=== PATIENT | male | born 1975 | race Caucasian/White ===

== ENCOUNTER 2016-10-12 10:11 | Inpatient (IN) | payer OTHER ==
[~2016-10-12] VITALS: Ht 182.9 cm; Wt 101.3 kg
[2016-10-12] MEDS ORDERED: LEVOTAB10 PO (10:22)
[2016-10-12] MEDS ORDERED: EFFE75CA75 PO (10:22)
[2016-10-12 11:48] LABS: MEAN CORPUSCULAR HEMOGLOBIN 31.6 pg (27.0-33.0); MEAN CORPUSCULAR VOLUME 87.7 fl (80.0-96.0); RED CELL DISTRIBUTION WIDTH 12.4 % (11.5-14.5); WHITE BLOOD COUNT 8.2 K/mm3 (4.0-10.0)
[2016-10-12 12:10] LABS: ALBUMIN 3.8 GM/DL (3.2-5.2); ALBUMIN/GLOBULIN RATIO 1.15 (1.00-1.93); ALKALINE PHOSPHATASE 72 U/L (45-117); ALT/SGPT 51 U/L (12-78); ANION GAP 5 MEQ/L (8-16); AST/SGOT 18 U/L (15-37); BILIRUBIN,DIRECT < 0.1 MG/DL (0.0-0.2); BILIRUBIN,TOTAL 0.5 MG/DL (0.2-1.0); BLOOD UREA NITROGEN 9 MG/DL (7-18); CALCIUM LEVEL 8.7 MG/DL (8.5-10.1); CARBON DIOXIDE LEVEL 31 MEQ/L (21-32); CHLORIDE LEVEL 104 MEQ/L (98-107); GLOMERULAR FILTRATION RATE > 60.0 (>60); GLUCOSE, FASTING 94 MG/DL (70-105); POTASSIUM SERUM 4.2 MEQ/L (3.5-5.1); SODIUM LEVEL 140 MEQ/L (136-145); TOTAL PROTEIN 7.1 GM/DL (6.4-8.2)
--- NOTE | 2016-10-12 12:22 | ECGEPIP ---
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 RBBB NSTTW ABNORMALITY NO PRIORS Electronically Signed On 10-12-2016 12:21:51 EDT by Torsten Steiner
[2016-10-12 13:22] LABS: METHADONE URINE NEGATIVE (NEGATIVE)
[2016-10-12] MEDS ORDERED: FEXO180T58 PO (14:10)
[2016-10-12] MEDS ORDERED: GUAI60TA PO (14:10)
[2016-10-12 17:17] VITALS: BP 147/80
[2016-10-12 18:00] VITALS: BP 129/78
[2016-10-12] MEDS ORDERED: MOM 30ML SUSPENSION UDC PO PRN (18:15)
[2016-10-12] MEDS ORDERED: traZODone 50 MG TAB PO PRN (18:15)
[2016-10-12] MEDS ORDERED: MAALOX 30 ML SUSP *UDC PO PRN (18:15)
[2016-10-12] MEDS ORDERED: ACETAMINOPHEN TAB 650MG DOSE (2X325MG) PO PRN (18:15)
[2016-10-12] MEDS ORDERED: VENLAFAXINE **XR** 75MG CAPSULE PO SCH (21:00)
[2016-10-12 21:40] VITALS: BP 129/78
[2016-10-13 06:00] VITALS: BP 121/83
[2016-10-13 18:00] VITALS: BP 126/86
[2016-10-13] MEDS: SERTRALINE HCL 50 MG TAB PO SCH (19:47)
--- NOTE | 2016-10-14 03:32 | MHHPEPDOC ---
[facility] History & Physical History and Physical DATE OF ADMISSION: Oct 12, 2016 at 13:59 LEGAL STATUS AT ADMISSION: Voluntary CHIEF COMPLAINT: Patient reports having thoughts of and passive suicidal ideation HISTORY OF THE PRESENT ILLNESS: Patient is a 41-year-old male, who reports feeling overwhelmed with his job, financial strains and depression. Reports a longstanding history of depression and has taken psychiatric medications such as venlafaxine 300 mgs. po daily but this medication was discontinued over a two weeks period and the discontinuation period created a lot of discomfort. Then he was given Remeron and it has made him very sleepy. Some years ago he was placed on Wellbutrin and this medication made him anxious. He would like to find a medication that helps him overcome depression. PSYCHIATRIC REVIEW OF SYSTEMS: Affective: Sad, helpless, hopeless, guilt, social isolation, low energy levels Anxiety: High anxiety levels Trauma: Denies, except that he had a legal problem years ago, for which he still feels embarrassed and blames himself for it . Psychosis: Denies auditory or visual hallucinations. Personally: Needs further assessment. PAST PSYCHIATRIC HISTORY: Prior Psychiatric Disorder: He reports a longstanding history of depression. Has been treated with Venlafaxine, Wellbutrin and Remeron without success.. Outpatient Treatment: Goes for outpatient treatment but his appointment was early next week and he will [facility]. Suicidal/Self injurious: Has had suicidal ideation, passive. Psychotropic Medication History: He was on Venlafaxine and was weaned from it in a 2 week period, then he wa started on Wellbutrin and he didin't tolerate it because it made him very anxious. After Wellbutrin he was started on Remeron but it makes him too sleepy.. ALLERGIES: Please see below. FAMILY PSYCHIATRIC HISTORY: he denies. SOCIAL HISTORY: Early Relations/development: He says he was a rebellious adolescent and had lots of anger. Had problems chanelling it the proper way.. Sibling order: He's the oldest one. 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 Legal: A previous legal problem at a young age. He didn't elaborate. Martial: . doesn't understand mental illness. Economic: Financial pressure and strains at the present moment.. Supports: and family. Abuse/trauma: Denies. SUBSTANCE ABUSE HISTORY: Denies. PAST MEDICAL/SURGICAL HISTORY: 1. Irrelevant. VITAL SIGNS: See below. MENTAL STATUS EXAMINATION: General appearance: Patient is a 41-year old male, who is alert, pleasant, cooperative, with good eye contact, . Speech: fluid, articulate. Thought processes: Intact. Thought content: Coherent. Abstract reasoning and computation: Intact. Description of associations: Not loosening of associations. Description of abnormal or psychotic thoughts: Denies active suicidal BUT endorses passive, fleeting suicidal thoughts. Denies homicidal ideation, denies auditory and visual hallucinations, denies thought delusions. Judgment: Fair Insight: Limited Orientation: Oriented x 3. Recent and remote memory: Intact. Attention span and concentration: Fair. Fund of knowledge: Adequate. Mood: "Depressed." Affect: Sad, depressed DIAGNOSES: 1. Major Depressive Disorder, recurrent, severe. 2. Generalized Anxiety Disorder. ASSESSMENT: Pt. is cooperative and insightful into his treatment process. He needs supportive psychotherapy and the proper medication combination to overcome his problem. PROBLEM LIST: 1. Depression. 2. Anxiety. 3. Risk for suicide/self harm. INITIAL TREATMENT PLAN: 1. Patient was admitted on a . 2. Complete history was obtained. 3. With patients permission, family will be contacted and database will be expanded. 4. Patients medication regimen will be reviewed and changed accordingly. 5. Patient will be provided with protected environment. 6. Patient will be treated with individual, group, and milieu therapies. 7. Patient will receive supportive psych-education. 8. Discharge planning will commence immediately. 9. Outpatient follow-up treatment will be strongly recommended. 10. The initial treatment plan will focus initially on: * Depression. * Risk for suicide. * Substance abuse. ESTIMATED LENGTH OF STAY: 7-10 DAYS. TIME SPENT COUNSELING AND COORDINATING INITIAL CARE: 50 minutes. Medications Scheduled Levocetirizine Hydrochloride (Levocetirizine Dihydrochl) 5 Mg Tab, 5 MG PO QPM, (Reported) Venlafaxine Hydrochloride (Effexor Xr) 75 Mg Cap, 75 MG PO QPM, (Reported) Scheduled PRN Fexofenadine Hydrochloride (Fexofenadine HCl) 180 Mg Tab, 180 MG PO DAILY PRN for allergies, (Reported) Guaifenesin (Mucinex) 600 Mg Tab, 600 MG PO QPM PRN for CONGESTION, (Reported) Allergies Coded Allergies: No Known Allergies (Unverified , 10/12/16) DAQUAN GORDILLO MD Oct 14, 2016 03:32
[2016-10-14 06:00] VITALS: BP 129/88
[2016-10-14] MEDS: SERTRALINE HCL 50 MG TAB PO SCH (09:18)
[2016-10-14 18:00] VITALS: BP 146/85
--- NOTE | 2016-10-14 18:41 | MHIPNPDOC ---
[facility] Progress Note Progress Note DATE OF SERVICE: 10/14/16 INTERVAL HISTORY: Medication Side effects: reports no side effects from the sertraline including G.I. side effects Behavior/events: has been sleeping a lot this morning Group Attendance: has attempted to go to groups Psychiatric Symptoms: reports his depression and anxiety have yet to change, described having difficulties with student loans, balancing financial and family concerns as well as not being in therapy the last several months. Describes the due to his position is unable to easily get psychological healthcare. He describes the past is tried bupropion, but is only made the symptoms worse VITAL SIGNS: See below. NEW TEST RESULTS: See below CURRENT MEDICATIONS: See below. MENTAL STATUS EXAMINATION: General: Well dressed with good hygiene Speech: Spontaneous and fluid Thought processes: Linear and logical Thought content: rife with stressful thoughts Abstract reasoning, and computation: Intact Description of associations: Intact Description of abnormal or psychotic thoughts:Denies any suicidal or homicidal ideation. Denies any auditory or visual hallucinations. Does not appear to be responding to internal stimuli. Does not appear to be endorsing any bizarre or paranoid ideation. Judgment: fair Insight: fair Orientation: Alert and orientated 3 Recent and remote memory: Intact Attention span and concentration: Intact Fund of knowledge: Adequate Mood: "okay" Affect: dysthymic with constricted range DIAGNOSES: 1. Unspecified depressive disorder. 2. Unspecified anxiety disorder. 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 side effects. Psychotherapy: encourage group therapy Social: no plan discharge at this time Misc: patient might be a candidate for Tele psych due to position Disposition: The patient will need of further inpatient stay to address severe depression and anxiety. TIME SPENT: 15 minutes. Vital Signs Vital Signs Date Time Temp Pulse Resp B/P (MAP) Pulse Ox O2 Delivery O2 Flow Rate FiO2 10/14/16 18:00 97.8 75 16 146/85 (105) 10/12/16 15:58 99 10/12/16 10:23 Room Air Current Medications Current Medications Acetaminophen (Tylenol Tab) 650 mg Q6HP PRN PO HEADACHE or DISCOMFORT; Start at 18:15; Stop 11/11/16 at 18:14 Al Hydrox/Mg Hydrox/Simethicone (Mylanta) 30 ml Q4HP PRN PO HEARTBURN/ INDIGESTION; Start 10/12/16 at 18:15; Stop 11/11/16 at 18:14 Home Med (Med Rec Complete!) ASDIRECTED XX ; Start 10/12/16 at 14:15; Stop at 14:15; Status DC Magnesium Hydroxide (Milk Of Magnesia) 30 ml DAILYPRN PRN PO CONSTIPATION; Start 10/12/16 at 18:15; Stop 11/11/16 at 18:14 Sertraline HCl (Zoloft) 50 mg DAILY PO Last administered on 10/14/16 09:18; Start 10/13/16 at 09:00; Stop 11/12/16 at 08:59 Trazodone HCl (Desyrel) 50 mg QHSP PRN PO INSOMNIA; Start 10/12/16 at 18:15; Stop 11/11/16 at 18:14 Venlafaxine HCl (Effexor Xr) 75 mg QPM PO Last administered on 10/12/16 20 :43; Start 10/12/16 at 21:00; Stop 10/13/16 at 19:03; Status DC Allergies Coded Allergies: No Known Allergies (Unverified , 10/12/16) GME ATTESTATION My preceptor for this patient encounter was physically present in the building during the encounter and was fully available. As needed, all aspects of the patient interview, examination, medical decision making process, and medical care plan development were reviewed and approved by the preceptor. Preceptor is aware and concurs with the plan as stated in the body of this note and will attest to such by his/her cosignature. SUZIE HOLT DO Oct 14, 2016 18:41
[2016-10-14] MEDS: CETIRIZINE (ZyrTEC) 10 MG TAB PO SCH (21:00)
[2016-10-15 06:22] VITALS: BP 144/96
[2016-10-15] MEDS: SERTRALINE HCL 50 MG TAB PO SCH (09:24)
--- NOTE | 2016-10-15 13:01 | HPE ---
DATE OF ADMISSION: 10/12/2016 HISTORY OF THE PRESENT ILLNESS: Please refer to psychiatric history and evaluation for further details on this admission. This examination and history performed is intended for medical issues history, which may need treatment, follow-up or consult on this 41-year-old male. PRIMARY CARE PROVIDER: He had made an appointment with [facility]. It is an upcoming appointment. He has not been there yet to establish. ALLERGIES: No known drug allergies. SOCIAL HISTORY: He is . EtOH three times a month. Smokes none. Recreational drug use none. PAST MEDICAL HISTORY: Environmental allergies. PAST SURGICAL HISTORY: Repair of deviated septum. HOME MEDICATIONS: - Effexor XR 75 mg by mouth every evening - Xyzal 5 mg by mouth every evening FAMILY HISTORY: Noncontributory. LABORATORIES: WBC 8.2, hemoglobin 14, hematocrit 39.0, platelets 229, electrolytes are normal, BUN 9, creatinine 0.90. Toxicology screen is negative. EKG showed sinus rhythm. REVIEW OF SYSTEMS: 10 systems review was done. Other than some stuffiness, he had no complaints. PHYSICAL EXAMINATION: 31-year-old cooperative male in no acute distress. Height 72 inches, weight 100.3 kg, BMI 30.0, blood pressure 124/86, pulse 76, respirations 16, temperature 98.6. Patient is alert and oriented times three. Pupils equal and react to light. Extraocular muscles intact. Cornea and sclerae are clear. Conjunctivae are normal. No facial asymmetry. Pharynx, tongue and gums are pink and moist. Tongue is midline. Neck is supple without lymphadenopathy. No thyromegaly. No goiter. Carotids are 2+ without bruit. Chest clear to auscultation without wheeze or retraction. Heart is regular. Abdomen is benign. Bowel sounds are positive. /rectal not done. Extremities show equal strength. Full range of motion. No cyanosis, clubbing or edema. Peripheral pulses are equal and palpable bilaterally. Skin is warm and dry. IMPRESSION/PLAN: 1. Psychiatric plan per psychiatry. 2. Environmental allergies, takes Xyzal at home, not on formulary will do Zyrtec 10 mg by mouth every evening. 3. No other acute medical issues. Edited 10/15/2016 JESSICAD
--- NOTE | 2016-10-15 13:04 | MHIPNPDOC ---
[facility] Progress Note Progress Note DATE OF SERVICE: 10/15/16 HISTORY: day 4, pt admitted for exacerbation of depression during medication change. VITAL SIGNS: See below. NEW TEST RESULTS: na CURRENT MEDICATIONS: See below. MENTAL STATUS EXAMINATION: Patient is a 41-year old male, who is well groomed, makes good eye contact, easily engaged. Speech: Is clear and spontaneous. Language skills are intact Thought processes including:coherent, linear, nothing out of the ordinary. Thought content: appropriate: medication, discharge, stressors. Abstract reasoning, and computation: good. Description of associations: good. Description of abnormal or psychotic thoughts: no psychotic symptoms. no thoughts of suicide. Judgment: good Insight: good. Orientation:well oriented in all spheres. Recent and remote memory: grossly intact Attention span and concentration: varies Fund of knowledge: full Mood:depressed. Affect: anxious. DIAGNOSES: 1. MDD, severe, recurrent without psychotic features. 2. JOY ASSESSMENT:met with pt for 1:1 discussion about reason for discharge and medication changes. 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 His is not versed in the impact of mental health and when we discussed a family meeting he thought this was a good idea. Pt is tolerating the change from Effexor 75 mg to Sertraline 50 mg. He reports adequate sleep. Appetite is intact. 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 He is hoping for discharge as soon as possible. Pt is encouraged to attend at least 1 group a day to help with coping and skill building and he agrees to do that. He also agrees to report any worsening depression or thoughts of suicide to staff. It was explained to pt that these medications need up to 4 weeks or longer to work so immediate results are not possible. He may be discharge before the full effect of the sertraline is known. Discussed side effects that can be intermittent and the fact that sertraline should not be stopped abruptly. It requires tapering much like Effexor. Pt has a great deal of anxiety and counseling is suggested as part of the discharge plan to help him sort out the stressors of his employment and problem solve difficult areas. He has expressed interest in attending counseling at [facility]. MANAGEMENT PLAN: continue medication and monitor side effects and efficacy. monitory sleep. maintain close observation, encourage participation in therapeutic milieu. Arrange family meeting prior to discharge. TIME SPENT: minutes. Vital Signs Vital Signs Date Time Temp Pulse Resp B/P (MAP) Pulse Ox O2 Delivery O2 Flow Rate FiO2 10/15/16 06:22 98.2 65 18 144/96 (112) Room Air 10/12/16 15:58 99 Current Medications Current Medications Acetaminophen (Tylenol Tab) 650 mg Q6HP PRN PO HEADACHE or DISCOMFORT; Start at 18:15; Stop 11/11/16 at 18:14 Al Hydrox/Mg Hydrox/Simethicone (Mylanta) 30 ml Q4HP PRN PO HEARTBURN/ INDIGESTION; Start 10/12/16 at 18:15; Stop 11/11/16 at 18:14 Cetirizine HCl (ZyrTEC) 10 mg QHS PO ; Start 10/14/16 at 21:00; Stop 11/13/16 at 20:59 Home Med (Med Rec Complete!) ASDIRECTED XX ; Start 10/12/16 at 14:15; Stop at 14:15; Status DC Magnesium Hydroxide (Milk Of Magnesia) 30 ml DAILYPRN PRN PO CONSTIPATION; Start 10/12/16 at 18:15; Stop 11/11/16 at 18:14 Sertraline HCl (Zoloft) 50 mg DAILY PO Last administered on 10/15/16 09:24; Start 10/13/16 at 09:00; Stop 11/12/16 at 08:59 Trazodone HCl (Desyrel) 50 mg QHSP PRN PO INSOMNIA; Start 10/12/16 at 18:15; Stop 11/11/16 at 18:14 Venlafaxine HCl (Effexor Xr) 75 mg QPM PO Last administered on 10/12/16 20 :43; Start 10/12/16 at 21:00; Stop 10/13/16 at 19:03; Status DC Allergies Coded Allergies: No Known Allergies (Unverified , 10/12/16) Ruth Rios Oct 15, 2016 13:03
[2016-10-15 18:29] VITALS: BP 127/63
[2016-10-15] MEDS: CETIRIZINE (ZyrTEC) 10 MG TAB PO SCH (21:30)
[2016-10-16 06:34] VITALS: BP 137/89
[2016-10-16] MEDS: SERTRALINE HCL 50 MG TAB PO SCH (08:28)
--- NOTE | 2016-10-16 13:20 | MHIPNPDOC ---
[facility] Progress Note Progress Note DATE OF SERVICE: 10/16/16 HISTORY: day 5, pt admitted with increasing depression and anxiety VITAL SIGNS: See below. NEW TEST RESULTS: na CURRENT MEDICATIONS: See below. MENTAL STATUS EXAMINATION: Patient is a 41-year old male, who is clean shaven, dressed in hospital attire, makes good eye contact, appears younger than his age, pleasant. Speech: Is coherent and spontaneous. Language skills are good. Thought processes including: goal directed Thought content: appropriate. Abstract reasoning, and computation: good. Description of associations: good. Description of abnormal or psychotic thoughts: no psychotic symptoms noted, pt reports that he is not having suicidal ideation. Judgment: good Insight: good, Orientation: well oriented in all spheres. Recent and remote memory: intact. Attention span and concentration: good. Fund of knowledge: full. Mood: anxious. Affect: congruent DIAGNOSES: MDD, severe without psychotic features. Generalized Anxiety Disorder ASSESSMENT:met with pt for 1:1 today. He reports waking right after an episode of REM sleep (he was dreaming) and feeling a little off because of that. He is a bit tired today and is contemplating a nap but does not want napping to become a habit for him. He spoke about what he considers his reliance on caffeine on a daily basis. We discussed the effect of caffeine on anxiety. He will often drink coffee and not eat and we discussed having protein in the morning and cutting out caffeine by 10 a.m. Caffeine use throughout the afternoon may also inhibit sleep and that becomes an additional problem. He verbalized understanding of information discussed. Pt continues to look forward to discharge. He is attending programing and mentioned he enjoyed Yoga yesterday. He stated he slept heavily last night, not affected by the code that was called on the floor. Pt states that suicidal ideation was not a main contributor to this admission. He reported having SI in college for the first time but he never acted on the thought. He denies having a plan now for suicide and feels it is really not an option for him. MANAGEMENT PLAN: pt is tolerating sertraline 50 mg without any GI problems or complaints. No skin rash or SOB. pt is not requiring a sleep aid at night. Pt is hoping his will agree to come in tomorrow and perhaps he could be discharged then. 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 TIME SPENT: 25 minutes. Vital Signs Vital Signs Date Time Temp Pulse Resp B/P (MAP) Pulse Ox O2 Delivery O2 Flow Rate FiO2 10/16/16 06:34 97.8 107 18 137/89 (105) 10/15/16 06:22 Room Air 10/12/16 15:58 99 Current Medications Current Medications Acetaminophen (Tylenol Tab) 650 mg Q6HP PRN PO HEADACHE or DISCOMFORT; Start at 18:15; Stop 11/11/16 at 18:14 Al Hydrox/Mg Hydrox/Simethicone (Mylanta) 30 ml Q4HP PRN PO HEARTBURN/ INDIGESTION; Start 10/12/16 at 18:15; Stop 11/11/16 at 18:14 Cetirizine HCl (ZyrTEC) 10 mg QHS PO Last administered on 10/15/16 21:30; Start 10/14/16 at 21:00; Stop 11/13/16 at 20:59 Home Med (Med Rec Complete!) ASDIRECTED XX ; Start 10/12/16 at 14:15; Stop at 14:15; Status DC Magnesium Hydroxide (Milk Of Magnesia) 30 ml DAILYPRN PRN PO CONSTIPATION; Start 10/12/16 at 18:15; Stop 11/11/16 at 18:14 Sertraline HCl (Zoloft) 50 mg DAILY PO Last administered on 10/16/16 08:28; Start 10/13/16 at 09:00; Stop 11/12/16 at 08:59 Trazodone HCl (Desyrel) 50 mg QHSP PRN PO INSOMNIA; Start 10/12/16 at 18:15; Stop 11/11/16 at 18:14 Venlafaxine HCl (Effexor Xr) 75 mg QPM PO Last administered on 10/12/16 20 :43; Start 10/12/16 at 21:00; Stop 10/13/16 at 19:03; Status DC Allergies Coded Allergies: No Known Allergies (Unverified , 10/12/16) Ruth Rios Oct 16, 2016 13:20
[2016-10-16 18:18] VITALS: BP 123/72
[2016-10-16] MEDS: CETIRIZINE (ZyrTEC) 10 MG TAB PO SCH (20:52)
[2016-10-17 06:35] VITALS: BP 152/78
[2016-10-17] MEDS: SERTRALINE HCL 50 MG TAB PO SCH (08:41)
[2016-10-17] MEDS ORDERED: SERT50TA PO (11:18)
--- NOTE | 2016-10-17 11:20 | MHDSPDOC ---
[facility] Discharge Summary Discharge Summary DATE OF ADMISSION: Oct 12, 2016 at 13:59 DATE OF DISCHARGE: Oct 17, 2016 DISCHARGE DIAGNOSES: MDD, severe, recurrent, without psychotic features Generalized Anxiety disorder REASON FOR ADMISSION: syncope related to medication change and anxiety. 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 He attend groups about once a day. He was visited routinely by his . He was taken off the Effexor and started on sertraline shortly after admission. He tolerated the change well with no reported side effects or GI effects one taking sertraline. Pt had mostly good sleep on the unit. He spends a great deal of time analyzing things but showed insight and good judgement. HOSPITAL COURSE:pt tolerated medication adjustment. He received information about medications to help with anxiety such as buspar and hydroxyzine. BENZO's were discussed but discouraged except for emergency situations. pt got along well with peers and staff. No behavior challenges. DISCHARGE ASSESSMENT: It was challenging to find a private practice who would take his insurance in order to arrange follow up for med mgt and psychotherapy. he did agree to attend [facility] for meds and therapy. Appts were made for him there as well as for PCP services at [facility]. The team met with pts to discuss origins of depression, best practices and treatment recommendations. Discussed role of medication along with the importance of staying busy. MENTAL STATUS EXAMINATION ON DISCHARGE: Patient is a 41-year old male, who is blonde, clean shaven, wearing street clothes, smiling and pleasant. Speech is clear, coherent Language skills are intact. Thought processes including: goal directed. Thought content: appropriate Abstract reasoning, and computation: good. Description of associations: good. Description of abnormal or psychotic thoughts: none, no SI or HI, no psychosis. Judgment: good Insight: good. Orientation to all spheres. Recent and remote memory: intact. Attention span and concentration: good. Fund of knowledge: full Mood: euthymic. Affect: congruent. MEDICATIONS ON DISCHARGE: - sertraline 50 mg daily for depression/anxiety - do not stop medication abruptly PLAN/FOLLOWUP ARRANGEMENTS:[facility]. The amount of time spent in the coordination of care for this patient was approximately 35 minutes. Vital Signs/I&Os Vital Signs Date Time Temp Pulse Resp B/P (MAP) Pulse Ox O2 Delivery O2 Flow Rate FiO2 10/17/16 06:35 97.6 87 20 152/78 (102) 10/15/16 06:22 Room Air 10/12/16 15:58 99 Medications Scheduled Levocetirizine Hydrochloride (Levocetirizine Dihydrochl) 5 Mg Tab, 5 MG PO QPM, (Reported) Sertraline Hcl (Sertraline HCl) 50 Mg Tab, 50 MG PO DAILY for MOOD for 7 Days, # 7 Scheduled PRN Fexofenadine Hydrochloride (Fexofenadine HCl) 180 Mg Tab, 180 MG PO DAILY PRN for allergies, (Reported) Guaifenesin (Mucinex) 600 Mg Tab, 600 MG PO QPM PRN for CONGESTION, (Reported) Allergies Coded Allergies: No Known Allergies (Unverified , 10/12/16) Ruth Rios Oct 17, 2016 11:19
== END 2016-10-17 12:35 | disposition home or self-care (01) | DRG 751 ==
LOC: EDBD 10:11 → M ED 13:05 → M ED INP 13:59 → M PSY 16:50
PROVIDERS: ADMIT Psychiatry & Neurology Psychiatry; ATTEND Psychiatry & Neurology Psychiatry
DX: F33.2 Major depressive disorder, recurrent severe without psychotic features (principal); F41.1 Generalized anxiety disorder; Z79.899 Other long term (current) drug therapy; J30.9 Allergic rhinitis, unspecified

== ENCOUNTER → 2016-10-26 | Outpatient (REF) | payer OTHER ==
[~2016-10-26] MED LIST: EFFE75CA75 PO; FEXO180T58 PO; LEVOTAB10 PO; MUCI600T31 PO; SERT50TA PO
== END ==
LOC: M SFHCPLAZ 16:14
PROVIDERS: ATTEND Nurse Practitioner Family
DX: F41.9 Anxiety disorder, unspecified (principal); G47.00 Insomnia, unspecified; Z13.220 Encounter for screening for lipoid disorders

== ENCOUNTER → 2016-11-20 | Outpatient (CLI) | payer OTHER ==
[2016-11-20 08:31] LABS: BASO % 0.5 % (0.0-1.0); EOS # 0.1 K/mm3 (0.0-0.50); EOS % 1.4 % (0.0-3.0); LARGE UNSTAINED CELL # 0.1 K/mm3 (0.0-0.4); LARGE UNSTAINED CELL % 1.6 % (0.0-4.0); LYMPH # 1.4 K/mm3 (1.5-4.5); LYMPH % 26.6 % (24.0-44.0); MEAN CORPUSCULAR HEMOGLOBIN 31.9 pg (27.0-33.0); MEAN CORPUSCULAR HGB CONC 36.1 g/dl (32.0-36.5); MEAN CORPUSCULAR VOLUME 88.2 fl (80.0-96.0); MONO # 0.3 K/mm3 (0.0-0.8); NEUTROPHILS # 3.1 K/mm3 (1.8-7.7); NEUTROPHILS % 63.9 % (36.0-66.0); PLATELET COUNT, AUTOMATED 242 k/mm3 (150-450); RED CELL DISTRIBUTION WIDTH 12.4 % (11.5-14.5); WHITE BLOOD COUNT 4.9 K/mm3 (4.0-10.0)
[2016-11-20 08:58] LABS: ALBUMIN 4.1 GM/DL (3.2-5.2); ALBUMIN/GLOBULIN RATIO 1.32 (1.00-1.93); ALKALINE PHOSPHATASE 65 U/L (45-117); ALT/SGPT 48 U/L (12-78); ANION GAP 8 MEQ/L (8-16); AST/SGOT 13 U/L (15-37); BILIRUBIN,TOTAL 0.6 MG/DL (0.2-1.0); BLOOD UREA NITROGEN 10 MG/DL (7-18); CALCIUM LEVEL 9.2 MG/DL (8.5-10.1); CARBON DIOXIDE LEVEL 29 MEQ/L (21-32); CHLORIDE LEVEL 104 MEQ/L (98-107); CHOLESTEROL LEVEL 197 MG/DL (<200); CREATININE FOR GFR 0.84 MG/DL (0.70-1.30); FREE T4 0.87 NG/DL (0.76-1.46); GLOMERULAR FILTRATION RATE > 60.0 (>60); GLUCOSE, FASTING 99 MG/DL (70-105); POTASSIUM SERUM 4.1 MEQ/L (3.5-5.1); SODIUM LEVEL 141 MEQ/L (136-145); TOTAL PROTEIN 7.2 GM/DL (6.4-8.2); TRIGLYCERIDES LEVEL 289 MG/DL (<150)
== END ==
LOC: M LAB 07:01
PROVIDERS: ATTEND Nurse Practitioner Family
DX: Z00.00 Encounter for general adult medical examination without abnormal findings (principal); F41.9 Anxiety disorder, unspecified; G47.00 Insomnia, unspecified; Z13.220 Encounter for screening for lipoid disorders

== ENCOUNTER → 2016-11-20 | Outpatient (CLI) | payer OTHER | LOC: M LAB 07:04 | PROVIDERS: ATTEND Nurse Practitioner Psychiatric/Mental Health | DX: F33.0 Major depressive disorder, recurrent, mild (principal) ==

== ENCOUNTER 2017-10-09 12:30 | Inpatient (IN) | payer OTHER ==
[2017-10-09 13:32] LABS: HEMATOCRIT 40.7 % (42.0-52.0); HEMOGLOBIN 14.9 g/dl (13.5-17.5); MEAN CORPUSCULAR HEMOGLOBIN 31.3 pg (27.0-33.0); MEAN CORPUSCULAR VOLUME 85.5 fl (80.0-96.0); PLATELET COUNT, AUTOMATED 250 10^3/uL (150-450); RED BLOOD COUNT 4.76 10^6/uL (4.30-6.10); RED CELL DISTRIBUTION WIDTH 11.8 % (11.5-14.5); WHITE BLOOD COUNT 6.2 10^3/uL (4.0-10.0)
[2017-10-09 13:35] LABS: MEAN CORPUSCULAR HGB CONC 36.6 g/dl (32.0-36.5)
[2017-10-09 13:55] LABS: AMPHETAMINES LEVEL URINE NEGATIVE (NEGATIVE); BARBITURATES URINE NEGATIVE (NEGATIVE); BENZODIAZEPINES URINE NEGATIVE (NEGATIVE); CANNABINOIDS URINE NEGATIVE (NEGATIVE); COCAINE METABOLITE URINE NEGATIVE (NEGATIVE); METHADONE URINE NEGATIVE (NEGATIVE); OPIATES URINE NEGATIVE (NEGATIVE); PHENCYCLIDINE URINE NEGATIVE (NEGATIVE)
[2017-10-09 14:06] LABS: ALBUMIN 4.2 GM/DL (3.2-5.2); ALBUMIN/GLOBULIN RATIO 1.45 (1.00-1.93); ALKALINE PHOSPHATASE 68 U/L (45-117); ALT/SGPT 50 U/L (12-78); ANION GAP 9 MEQ/L (8-16); AST/SGOT 14 U/L (7-37); BILIRUBIN,DIRECT 0.1 MG/DL (0.0-0.2); BILIRUBIN,TOTAL 0.4 MG/DL (0.2-1.0); BLOOD UREA NITROGEN 11 MG/DL (7-18); CALCIUM LEVEL 8.8 MG/DL (8.5-10.1); CARBON DIOXIDE LEVEL 27 MEQ/L (21-32); CHLORIDE LEVEL 106 MEQ/L (98-107); CREATININE FOR GFR 0.88 MG/DL (0.70-1.30); ETHYL ALCOHOL (ETHANOL) < 0.003 % (0.000-0.010); GLOMERULAR FILTRATION RATE > 60.0 (>60); GLUCOSE, FASTING 133 MG/DL (70-100); POTASSIUM SERUM 3.8 MEQ/L (3.5-5.1); SALICYLATE LEVEL < 1.7 MG/DL (5.0-30.0); SODIUM LEVEL 142 MEQ/L (136-145); TOTAL PROTEIN 7.1 GM/DL (6.4-8.2)
[2017-10-09 14:16] LABS: ACETAMINOPHEN LEVEL < 2.0 UG/ML (10.0-30.0)
[2017-10-09] MEDS ORDERED: MAALOX 30 ML SUSP *UDC PO (19:00)
[2017-10-09] MEDS ORDERED: MOM 30ML SUSPENSION UDC PO (19:00)
[2017-10-09] MEDS ORDERED: ACETAMINOPHEN TAB 650MG DOSE (2X325MG) PO (19:00)
[2017-10-09] MEDS ORDERED: hydrOXYzine 25 MG TAB PO (19:00)
[2017-10-09] MEDS: SERTRALINE 100 MG TAB PO (21:04)
[2017-10-09] MEDS: SERTRALINE HCL 50 MG TAB PO (21:04)
[2017-10-10] MEDS ORDERED: hydrOXYzine 25 MG TAB PO (13:15)
[2017-10-10] MEDS: SERTRALINE 100 MG TAB PO (21:02)
[2017-10-11] MEDS: SERTRALINE 100 MG TAB PO (20:11)
[2017-10-12] MEDS: SERTRALINE 100 MG TAB PO (20:37)
[2017-10-12] MEDS: traZODone 50 MG TAB PO (22:06)
[2017-10-13] MEDS: SERTRALINE 100 MG TAB PO (21:11)
[2017-10-13] MEDS: traZODone 50 MG TAB PO (22:20)
== END 2017-10-14 14:15 | disposition home or self-care (01) | DRG 885 ==
LOC: M ED 12:30 → M ED INP 16:07 → M PSY 17:18
DX: F33.2 Major depressive disorder, recurrent severe without psychotic features (principal); F41.1 Generalized anxiety disorder; Z79.899 Other long term (current) drug therapy

== ENCOUNTER → 2017-11-20 | Outpatient (REF) | payer OTHER ==
[2017-11-20 12:58] LABS: BASO % 0.4 % (0.0-1.0); EOS % 0.3 % (0.0-3.0); HEMATOCRIT 42.5 % (42.0-52.0); HEMOGLOBIN 14.7 g/dl (13.5-17.5); IMMATURE GRANULOCYTE % 0.1 % (0-3.0); LYMPH # 1.1 10^3/uL (1.5-4.5); LYMPH % 14.6 % (24.0-44.0); MEAN CORPUSCULAR HEMOGLOBIN 30.6 pg (27.0-33.0); MEAN CORPUSCULAR HGB CONC 34.6 g/dl (32.0-36.5); MEAN CORPUSCULAR VOLUME 88.4 fl (80.0-96.0); MONO # 0.4 10^3/uL (0.0-0.8); MONO % 6.1 % (0.0-5.0); NEUTROPHILS # 5.7 10^3/uL (1.8-7.7); NEUTROPHILS % 78.5 % (36.0-66.0); PLATELET COUNT, AUTOMATED 266 10^3/uL (150-450); RED BLOOD COUNT 4.81 10^6/uL (4.30-6.10); RED CELL DISTRIBUTION WIDTH 12.1 % (11.5-14.5); WHITE BLOOD COUNT 7.2 10^3/uL (4.0-10.0)
[2017-11-20 13:15] LABS: C REACTIVE PROTEIN QUANTITATIV < 0.30 MG/DL (0.00-0.30)
[2017-11-20 13:56] LABS: ERYTHROCYTE SEDIMENTATION RATE 3 mm/hr (0-15)
[2017-11-29 00:07] LABS: GAD-65 AUTOANTIBODY <5.0 U/mL (0.0-5.0)
[2017-11-29 00:07] LABS: Lyme Disease IgG/IgM Antibodie <0.91 ISR (0.00-0.90); Lyme Disease IgM Ab Quantitati <0.80 index (0.00-0.79); MAGNESIUM RBC LEVEL 4.6 mg/dL (4.2-6.8); TISSUE TRANSGLUTAMINASE IgA 2 U/mL (0-3)
== END ==
LOC: M LABDRAW1 12:30
DX: R19.7 Diarrhea, unspecified (principal); F33.0 Major depressive disorder, recurrent, mild; F41.1 Generalized anxiety disorder

== ENCOUNTER 2017-12-18 11:58 | Inpatient (IN) | payer OTHER ==
[2017-12-18 13:06] LABS: HEMATOCRIT 40.1 % (42.0-52.0); HEMOGLOBIN 14.3 g/dl (13.5-17.5); MEAN CORPUSCULAR HGB CONC 35.7 g/dl (32.0-36.5); PLATELET COUNT, AUTOMATED 242 10^3/uL (150-450); RED BLOOD COUNT 4.61 10^6/uL (4.30-6.10); WHITE BLOOD COUNT 6.1 10^3/uL (4.0-10.0)
[2017-12-18 13:47] LABS: AMPHETAMINES LEVEL URINE NEGATIVE (NEGATIVE); BARBITURATES URINE NEGATIVE (NEGATIVE); BENZODIAZEPINES URINE POSITIVE (NEGATIVE); CANNABINOIDS URINE NEGATIVE (NEGATIVE); COCAINE METABOLITE URINE NEGATIVE (NEGATIVE); METHADONE URINE NEGATIVE (NEGATIVE); OPIATES URINE NEGATIVE (NEGATIVE); PHENCYCLIDINE URINE NEGATIVE (NEGATIVE)
[2017-12-18 13:51] LABS: ALBUMIN 4.2 GM/DL (3.2-5.2); ALBUMIN/GLOBULIN RATIO 1.35 (1.00-1.93); ALKALINE PHOSPHATASE 65 U/L (45-117); ALT/SGPT 48 U/L (12-78); ANION GAP 8 MEQ/L (8-16); AST/SGOT 19 U/L (7-37); BILIRUBIN,DIRECT 0.1 MG/DL (0.0-0.2); BILIRUBIN,TOTAL 0.6 MG/DL (0.2-1.0); BLOOD UREA NITROGEN 9 MG/DL (7-18); CALCIUM LEVEL 9.4 MG/DL (8.5-10.1); CARBON DIOXIDE LEVEL 26 MEQ/L (21-32); CHLORIDE LEVEL 105 MEQ/L (98-107); CREATININE FOR GFR 0.82 MG/DL (0.70-1.30); ETHYL ALCOHOL (ETHANOL) < 0.003 % (0.000-0.010); GLOMERULAR FILTRATION RATE > 60.0 (>60); GLUCOSE, FASTING 140 MG/DL (70-100); POTASSIUM SERUM 3.8 MEQ/L (3.5-5.1); SALICYLATE LEVEL < 1.7 MG/DL (5.0-30.0); SODIUM LEVEL 139 MEQ/L (136-145); TOTAL PROTEIN 7.3 GM/DL (6.4-8.2)
[2017-12-18 13:55] LABS: ACETAMINOPHEN LEVEL < 2.0 UG/ML (10.0-30.0)
[2017-12-18] MEDS ORDERED: ACETAMINOPHEN TAB 650MG DOSE (2X325MG) PO (14:30)
[2017-12-18] MEDS ORDERED: MOM 30ML SUSPENSION UDC PO (14:30)
[2017-12-18] MEDS ORDERED: MAALOX 30 ML SUSP *UDC PO (14:30)
[2017-12-18] MEDS ORDERED: clonazePAM 0.5 MG TAB PO (15:00)
[2017-12-18] MEDS: SERTRALINE 100 MG TAB PO (21:54)
[2017-12-18] MEDS: traZODone 50 MG TAB PO (21:54)
[2017-12-19] MEDS: PROPRANOLOL 10 MG TAB PO ×2 (16:07→20:19)
[2017-12-19] MEDS: NORTRIPTYLINE 25 MG CAP PO (20:18)
[2017-12-20] MEDS: traZODone 50 MG TAB PO ×2 (02:02→21:30)
[2017-12-20] MEDS: PROPRANOLOL 10 MG TAB PO ×3 (08:13→20:56)
[2017-12-20] MEDS: NORTRIPTYLINE 25 MG CAP PO (20:55)
[2017-12-21] MEDS: PROPRANOLOL 10 MG TAB PO ×3 (08:09→21:28)
[2017-12-21] MEDS: NORTRIPTYLINE 25 MG CAP PO (21:28)
[2017-12-21] MEDS: traZODone 50 MG TAB PO (21:36)
[2017-12-22] MEDS: PROPRANOLOL 10 MG TAB PO ×4 (09:24→21:25)
[2017-12-22] MEDS: NORTRIPTYLINE 25 MG CAP PO (21:23)
[2017-12-22] MEDS: traZODone 50 MG TAB PO (21:27)
[2017-12-23] MEDS: PROPRANOLOL 10 MG TAB PO ×3 (08:37→21:10)
[2017-12-23] MEDS: NORTRIPTYLINE 25 MG CAP PO (21:10)
[2017-12-23] MEDS: traZODone 50 MG TAB PO (21:22)
[2017-12-24] MEDS: PROPRANOLOL 10 MG TAB PO ×3 (09:13→21:17)
[2017-12-24] MEDS: QUEtiapine FUMARATE 50 MG TAB PO (21:17)
[2017-12-24] MEDS: traZODone 50 MG TAB PO (21:17)
[2017-12-24] MEDS: NORTRIPTYLINE 25 MG CAP PO (21:17)
[2017-12-25] MEDS: PROPRANOLOL 10 MG TAB PO (08:34)
== END 2017-12-25 13:10 | disposition home or self-care (01) | DRG 885 ==
LOC: M ED 11:58 → M ED INP 14:20 → M PSY 16:25
DX: F33.2 Major depressive disorder, recurrent severe without psychotic features (principal); F41.1 Generalized anxiety disorder; Z79.899 Other long term (current) drug therapy

== ENCOUNTER → 2017-12-27 | Outpatient (CLI) | payer OTHER ==
[2017-12-27 10:19] LABS: ALBUMIN 4.2 GM/DL (3.2-5.2); ALKALINE PHOSPHATASE 67 U/L (45-117); ALT/SGPT 70 U/L (12-78); ANION GAP 7 MEQ/L (8-16); AST/SGOT 22 U/L (7-37); BILIRUBIN,TOTAL 0.9 MG/DL (0.2-1.0); BLOOD UREA NITROGEN 9 MG/DL (7-18); CARBON DIOXIDE LEVEL 30 MEQ/L (21-32); CHLORIDE LEVEL 102 MEQ/L (98-107); CHOLESTEROL LEVEL 183 MG/DL (<200); CHOLESTEROL RISK RATIO 5.382 (<5); CREATININE FOR GFR 0.85 MG/DL (0.70-1.30); GLOMERULAR FILTRATION RATE > 60.0 (>60); GLUCOSE, FASTING 91 MG/DL (70-100); HDL CHOLESTEROL 34 MG/DL (>40); NON-HDL-C 149 MG/DL; SODIUM LEVEL 139 MEQ/L (136-145); TOTAL PROTEIN 7.2 GM/DL (6.4-8.2); TRIGLYCERIDES LEVEL 446 MG/DL (<150)
== END ==
LOC: M LAB 08:51
DX: Z00.00 Encounter for general adult medical examination without abnormal findings (principal); Z68.31 Body mass index [BMI] 31.0-31.9, adult; E78.2 Mixed hyperlipidemia; E55.9 Vitamin D deficiency, unspecified
CPT/HCPCS: 80053

== ENCOUNTER 2018-01-06 19:08 | Inpatient (IN) | payer OTHER ==
[2018-01-06 20:45] LABS: HEMATOCRIT 43.1 % (42.0-52.0); HEMOGLOBIN 15.1 g/dl (13.5-17.5); MEAN CORPUSCULAR HEMOGLOBIN 30.7 pg (27.0-33.0); MEAN CORPUSCULAR VOLUME 87.6 fl (80.0-96.0); PLATELET COUNT, AUTOMATED 290 10^3/uL (150-450); RED BLOOD COUNT 4.92 10^6/uL (4.30-6.10); RED CELL DISTRIBUTION WIDTH 11.9 % (11.5-14.5); WHITE BLOOD COUNT 9.7 10^3/uL (4.0-10.0)
[2018-01-06 21:08] LABS: AMPHETAMINES LEVEL URINE NEGATIVE (NEGATIVE); BARBITURATES URINE NEGATIVE (NEGATIVE); BENZODIAZEPINES URINE NEGATIVE (NEGATIVE); CANNABINOIDS URINE NEGATIVE (NEGATIVE); COCAINE METABOLITE URINE NEGATIVE (NEGATIVE); METHADONE URINE NEGATIVE (NEGATIVE); OPIATES URINE NEGATIVE (NEGATIVE); PHENCYCLIDINE URINE NEGATIVE (NEGATIVE)
[2018-01-06 21:11] LABS: ETHYL ALCOHOL (ETHANOL) < 0.003 % (0.000-0.010)
[2018-01-06 21:18] LABS: ACETAMINOPHEN LEVEL < 2.0 UG/ML (10.0-30.0); ALBUMIN 4.7 GM/DL (3.2-5.2); ALBUMIN/GLOBULIN RATIO 1.52 (1.00-1.93); ALKALINE PHOSPHATASE 69 U/L (45-117); ALT/SGPT 52 U/L (12-78); ANION GAP 9 MEQ/L (8-16); AST/SGOT 15 U/L (7-37); BILIRUBIN,DIRECT 0.2 MG/DL (0.0-0.2); BILIRUBIN,TOTAL 0.6 MG/DL (0.2-1.0); BLOOD UREA NITROGEN 11 MG/DL (7-18); CALCIUM LEVEL 9.5 MG/DL (8.5-10.1); CARBON DIOXIDE LEVEL 29 MEQ/L (21-32); CHLORIDE LEVEL 102 MEQ/L (98-107); CREATININE FOR GFR 0.86 MG/DL (0.70-1.30); GLOMERULAR FILTRATION RATE > 60.0 (>60); GLUCOSE, FASTING 86 MG/DL (70-100); POTASSIUM SERUM 3.7 MEQ/L (3.5-5.1); SALICYLATE LEVEL < 1.7 MG/DL (5.0-30.0); SODIUM LEVEL 140 MEQ/L (136-145); TOTAL PROTEIN 7.8 GM/DL (6.4-8.2)
[2018-01-06] MEDS ORDERED: ACETAMINOPHEN TAB 650MG DOSE (2X325MG) PO (22:30)
[2018-01-06] MEDS ORDERED: MAALOX 30 ML SUSP *UDC PO (22:30)
[2018-01-06] MEDS ORDERED: traZODone 50 MG TAB PO (22:30)
[2018-01-06] MEDS ORDERED: MOM 30ML SUSPENSION UDC PO (22:30)
[2018-01-07] MEDS: INFLUENZA QUADRIVALENT PF VACCINE 0.5ML SYRINGE (90686) IM (09:13)
[2018-01-07] MEDS: PROPRANOLOL 10 MG TAB PO ×3 (11:35→21:33)
[2018-01-07] MEDS: NORTRIPTYLINE 25 MG CAP PO (21:33)
[2018-01-08 07:57] LABS: FREE THYROXINE INDEX 4.1 % (1.4-3.8); T UPTAKE 35 % (33-40); THYROXINE (T4) 11.6 UG/DL (4.5-12.0)
[2018-01-08] MEDS: PROPRANOLOL 10 MG TAB PO ×3 (08:41→21:14)
[2018-01-08 10:27] LABS: ALBUMIN 4.2 GM/DL (3.2-5.2); ALBUMIN/GLOBULIN RATIO 1.31 (1.00-1.93); ALKALINE PHOSPHATASE 64 U/L (45-117); ALT/SGPT 65 U/L (12-78); ANION GAP 9 MEQ/L (8-16); AST/SGOT 22 U/L (7-37); BILIRUBIN,TOTAL 0.9 MG/DL (0.2-1.0); BLOOD UREA NITROGEN 12 MG/DL (7-18); CALCIUM LEVEL 9.3 MG/DL (8.5-10.1); CARBON DIOXIDE LEVEL 28 MEQ/L (21-32); CHLORIDE LEVEL 102 MEQ/L (98-107); CREATININE FOR GFR 0.94 MG/DL (0.70-1.30); GLOMERULAR FILTRATION RATE > 60.0 (>60); GLUCOSE, FASTING 103 MG/DL (70-100); POTASSIUM SERUM 4.1 MEQ/L (3.5-5.1); SODIUM LEVEL 139 MEQ/L (136-145); TOTAL PROTEIN 7.4 GM/DL (6.4-8.2)
[2018-01-08] MEDS: hydrOXYzine 50 MG TAB PO (11:12)
[2018-01-08] MEDS: NORTRIPTYLINE 25 MG CAP PO (21:14)
[2018-01-09 07:22] LABS: HEMATOCRIT 41.2 % (42.0-52.0); HEMOGLOBIN 14.2 g/dl (13.5-17.5); MEAN CORPUSCULAR HEMOGLOBIN 30.3 pg (27.0-33.0); MEAN CORPUSCULAR HGB CONC 34.5 g/dl (32.0-36.5); PLATELET COUNT, AUTOMATED 235 10^3/uL (150-450); RED BLOOD COUNT 4.68 10^6/uL (4.30-6.10); RED CELL DISTRIBUTION WIDTH 11.9 % (11.5-14.5); WHITE BLOOD COUNT 5.8 10^3/uL (4.0-10.0)
[2018-01-09 07:40] LABS: ALBUMIN/GLOBULIN RATIO 1.33 (1.00-1.93); ALKALINE PHOSPHATASE 66 U/L (45-117); ALT/SGPT 74 U/L (12-78); ANION GAP 9 MEQ/L (8-16); AST/SGOT 24 U/L (7-37); BILIRUBIN,TOTAL 0.6 MG/DL (0.2-1.0); BLOOD UREA NITROGEN 12 MG/DL (7-18); CALCIUM LEVEL 9.3 MG/DL (8.5-10.1); CARBON DIOXIDE LEVEL 30 MEQ/L (21-32); CHLORIDE LEVEL 102 MEQ/L (98-107); CREATININE FOR GFR 0.97 MG/DL (0.70-1.30); GLOMERULAR FILTRATION RATE > 60.0 (>60); GLUCOSE, FASTING 104 MG/DL (70-100); POTASSIUM SERUM 4.5 MEQ/L (3.5-5.1); SODIUM LEVEL 141 MEQ/L (136-145)
[2018-01-09] MEDS: PROPRANOLOL 10 MG TAB PO ×3 (09:20→21:33)
[2018-01-09] MEDS: NORTRIPTYLINE 25 MG CAP PO (21:34)
[2018-01-10] MEDS: PROPRANOLOL 10 MG TAB PO ×3 (09:24→21:06)
[2018-01-10] MEDS: NORTRIPTYLINE 25 MG CAP PO (21:05)
[2018-01-11] MEDS: PROPRANOLOL 10 MG TAB PO ×3 (09:27→21:37)
[2018-01-11] MEDS: NORTRIPTYLINE 25 MG CAP PO (21:37)
[2018-01-12] MEDS: PROPRANOLOL 10 MG TAB PO ×3 (09:04→21:46)
[2018-01-12] MEDS: NORTRIPTYLINE 25 MG CAP PO (21:46)
[2018-01-13] MEDS: PROPRANOLOL 10 MG TAB PO ×3 (08:41→21:36)
[2018-01-13] MEDS: TUBERCULIN PPD 5 UNITS/0.1 ML ID (13:09)
[2018-01-13] MEDS: ARIPiprazole 15 MG TAB (AbiLIFY) PO (21:35)
[2018-01-13] MEDS: PILL CRUSHER/CUTTER 1 EACH XX (21:36)
[2018-01-13] MEDS: NORTRIPTYLINE 25 MG CAP PO (21:36)
[2018-01-14] MEDS: PROPRANOLOL 10 MG TAB PO ×3 (08:25→21:30)
[2018-01-14] MEDS: VITAMIN D 1,000 INTERNATIONAL UNITS TABLET PO (08:25)
[2018-01-14] MEDS: NORTRIPTYLINE 25 MG CAP PO (21:29)
[2018-01-14] MEDS: PILL CRUSHER/CUTTER 1 EACH XX (21:30)
[2018-01-14] MEDS: ARIPiprazole 15 MG TAB (AbiLIFY) PO (21:31)
[2018-01-15] MEDS: PROPRANOLOL 10 MG TAB PO (08:41)
[2018-01-15] MEDS: VITAMIN D 1,000 INTERNATIONAL UNITS TABLET PO (08:42)
[2018-01-15] MEDS: PPD DOCUMENTATION ENTRY MISC XX (11:00)
== END 2018-01-15 11:00 | disposition home or self-care (01) | DRG 885 ==
LOC: M PSY 01-07 00:22 → M ED 19:08 → M ED INP 22:17
DX: F33.2 Major depressive disorder, recurrent severe without psychotic features (principal); J30.9 Allergic rhinitis, unspecified; Z79.899 Other long term (current) drug therapy

== ENCOUNTER 2018-03-27 12:58 | Inpatient (IN) | payer OTHER ==
[~2018-03-27] VITALS: Ht 182.9 cm; Wt 99.6 kg
[2018-03-27] MEDS: NICOTINE 21MG/24HR 1 EA TRANSDERMAL TD SCH (09:00)
[~2018-03-27 12:58] MED LIST changes: +ABIL1TAB11 PO; +ARIP15TAB PO; +ARIP5TA PO; +EFFE75CA2 PO; -EFFE75CA75 PO; +HYDR-3363 PO; +HYDRO50TAB PO; +KLON0.5T PO; +MAGN250T7 PO; +NORT25CA2 PO; +PROP10TA56 PO; +PROP10TAB PO; +QUET5TAB PO; +REXU1TAB3 PO; +SERT-138 PO; +SERT-155 PO; +TRAZ-160 PO; +TRAZO50TA PO; +ZOLO100T PO
[2018-03-27] MEDS ORDERED: PARO15TA (13:05)
[2018-03-27 13:47] LABS: HEMATOCRIT 45.6 % (42.0-52.0); HEMOGLOBIN 16.1 g/dl (13.5-17.5); MEAN CORPUSCULAR HEMOGLOBIN 30.9 pg (27.0-33.0); MEAN CORPUSCULAR HGB CONC 35.3 g/dl (32.0-36.5); MEAN CORPUSCULAR VOLUME 87.5 fl (80.0-96.0); PLATELET COUNT, AUTOMATED 325 10^3/uL (150-450); RED BLOOD COUNT 5.21 10^6/uL (4.30-6.10); WHITE BLOOD COUNT 7.7 10^3/uL (4.0-10.0)
[2018-03-27 14:29] LABS: ACETAMINOPHEN LEVEL < 2.0 UG/ML (10.0-30.0); ALBUMIN 4.7 GM/DL (3.2-5.2); ALT/SGPT 44 U/L (12-78); BILIRUBIN,DIRECT 0.2 MG/DL (0.0-0.2); BILIRUBIN,TOTAL 0.8 MG/DL (0.2-1.0); BLOOD UREA NITROGEN 10 MG/DL (7-18); CALCIUM LEVEL 9.8 MG/DL (8.5-10.1); CARBON DIOXIDE LEVEL 32 MEQ/L (21-32); CHLORIDE LEVEL 101 MEQ/L (98-107); CREATININE FOR GFR 0.92 MG/DL (0.70-1.30); ETHYL ALCOHOL (ETHANOL) 0.003 % (0.000-0.010); GLOMERULAR FILTRATION RATE > 60.0 (>60); GLUCOSE, FASTING 95 MG/DL (70-100); POTASSIUM SERUM 4.2 MEQ/L (3.5-5.1); SALICYLATE LEVEL < 1.7 MG/DL (5.0-30.0); SODIUM LEVEL 140 MEQ/L (136-145); TOTAL PROTEIN 7.8 GM/DL (6.4-8.2)
[2018-03-27 15:10] LABS: AMPHETAMINES LEVEL URINE NEGATIVE (NEGATIVE); BARBITURATES URINE NEGATIVE (NEGATIVE); BENZODIAZEPINES URINE NEGATIVE (NEGATIVE); CANNABINOIDS URINE NEGATIVE (NEGATIVE); COCAINE METABOLITE URINE NEGATIVE (NEGATIVE); METHADONE URINE NEGATIVE (NEGATIVE); OPIATES URINE NEGATIVE (NEGATIVE); PHENCYCLIDINE URINE NEGATIVE (NEGATIVE)
[2018-03-27] MEDS ORDERED: PROPRANOLOL 10 MG TAB PO ONE (16:15)
[2018-03-27] MEDS ORDERED: PARO30TA3 PO (16:28)
[2018-03-27] MEDS ORDERED: ARIP15TAB PO (16:28)
[2018-03-27] MEDS ORDERED: traZODone 50 MG TAB PO PRN (16:45)
[2018-03-27] MEDS ORDERED: MOM 30ML SUSPENSION UDC PO PRN (16:45)
[2018-03-27] MEDS ORDERED: MAALOX 30 ML SUSP *UDC PO PRN (16:45)
[2018-03-27] MEDS ORDERED: ACETAMINOPHEN TAB 650MG DOSE (2X325MG) PO PRN (16:45)
[2018-03-27] MEDS: PROPRANOLOL 10 MG TAB PO PRN (21:59)
[2018-03-28 07:00] VITALS: BP 132/66
--- NOTE | 2018-03-28 08:37 | HPEPDOC ---
[facility] Medical History & Physical Date of Admission Mar 27, 2018 History and Physical PCP: Alisha Betts NP ATTENDING: Dr. Cari Baldwin HPI: 42 yo M admitted to [facility] for depressive disorder, being medically examined today. No acute medical complaints today. Pt states he is prescribed propranolol for anxiety. Denies any fevers, chills, weakness, fatigue, DANIEL, CP, SOB, cough, palpitations, abdominal pain, N/V/D or changes in bowel or bladder habits. PMHx: Anxiety Depression History of SI Allergic rhinitis PSHX: Deviated septum [address] ARRIAGA WITH POLPYPECTOMY 07/[address] 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 PE: GEN: 42 yo M, appears stated age. Well-nourished, well developed. Alert and oriented x 3. Teary throughout exam. HEENT: Normocephalic, atraumatic. Pupils are equal, round, and reactive to light. Extraocular movements are intact. No nystagmus appreciated. Sclera are nonicteric. Conjunctiva without injection. Nose midline. Nasal turbinates without bogginess. EACs both patent BL. TMs both visualized and jacobs with good cone of light, no bulging or erythema. No facial asymmetry. Moist mucous membranes. Dentition fair. Pharynx pink and moist, no cobblestoning. Neck supple, trachea midline. No lymphadenopathy or thyromegaly appreciated. CHEST: Regular rate and rhythm, +S1, +S2 LUNGS: Clear to auscultation bilaterally. No wheezes, rales, or rhonchi. Breathing appears symmetric and easy. Patient is speaking in full sentences. No accessory muscle use. ABD: Round, soft, non-tender, non-distended. +Bowel sounds throughout. No rebound or guarding. No costovertebral angle tenderness. EXT: Pulses 2+ bilaterally dorsalis pedis and radial. No lower extremity edema appreciated. SKIN: [place], dry, warm. Capillary refill <2sec. No rashes. NEURO: Alert and oriented x 3. Cranial nerves III-XII are intact. No focal deficits appreciated. EKG: SINUS RHYTHM NSSTTW ABN SIMILAR TO 10/11/17 Electronically Signed On 01-08-2018 9:23:24 EDT by Mindy Robbins A&P: 42 yo M admitted to [facility] for depressive disorder 1. Psych. Plan per Psychiatry. EKG on file. 2. Follow up with PCP on discharge. 3. Staff member Bill present throughout exam. Vital Signs Vital Signs Date Time Temp Pulse Resp B/P (MAP) Pulse Ox O2 Delivery O2 Flow Rate FiO2 03/28/18 07:00 97.3 79 14 132/66 (88) Room Air 03/27/18 17:55 97 Laboratory Data Labs 24H Laboratory Tests 2 03/27/18 13:32: Nucleated Red Blood Cells % (auto) 0.0, Anion Gap 7L, Glomerular Filtration Rate > 60.0, Calcium Level 9.8, Aspartate Amino Transf (AST/SGOT) 12, Alanine Aminotransferase (ALT/SGPT) 44, Alkaline Phosphatase 77, Total Bilirubin 0.8, Direct Bilirubin 0.2, Total Protein 7.8, Albumin 4.7, Albumin/Globulin Ratio 1.52, Thyroid Stimulating Hormone (TSH) 2.810, Salicylates Level < 1.7L, Acetaminophen Level < 2.0L, Ethyl Alcohol Level 0.003 03/27/18 14:29: Urine Amphetamines Screen NEGATIVE, Urine Benzodiazepines Screen NEGATIVE, Urine Opiates Screen NEGATIVE, Urine Methadone Screen NEGATIVE, Urine Barbiturates Screen NEGATIVE, Urine Phencyclidine Screen NEGATIVE, Urine Cocaine Metabolite Screen NEGATIVE, Urine Cannabinoids Screen NEGATIVE CBC/BMP Laboratory Tests 03/27/18 13:32 Red Blood Count 5.21, Mean Corpuscular Volume 87.5, Mean Corpuscular Hemoglobin 30.9, Mean Corpuscular Hemoglobin Concent 35.3, Red Cell Distribution Width 12.0 Home Medications Scheduled Aripiprazole (Aripiprazole) 10 Mg Tab, 10 MG PO QAM for mood Diphenhydramine HCl (Diphenhydramine HCl) 25 Mg Cap, 25 MG PO Q6H for extrapyramidal side effects Gabapentin (Gabapentin) 300 Mg Cap, 300 MG PO TID for anxiety/pain Venlafaxine HCl (Venlafaxine HCl) 37.5 Mg Tab, 225 MG PO DAILY for depression Scheduled PRN Propranolol HCl (Propranolol HCl) 10 Mg Tab, 10 MG PO TID PRN for ANXIETY Trazodone HCl (Trazodone HCl) 50 Mg Tab, 50 MG PO QHSP PRN for INSOMNIA Allergies Coded Allergies: No Known Allergies (Unverified , 10/12/16) Yareli Santos Mar 28, 2018 08:37
[2018-03-28] MEDS ORDERED: PARoxetine 20 MG TAB PO SCH (09:00)
[2018-03-28] MEDS: NICOTINE 21MG/24HR 1 EA TRANSDERMAL TD SCH (09:00)
[2018-03-28] MEDS: PROPRANOLOL 10 MG TAB PO PRN (09:55)
--- NOTE | 2018-03-28 16:00 | MHHPEPDOC ---
[facility] History & Physical History and Physical DATE OF ADMISSION: Mar 27, 2018 at 16:39 Chief Complaint "suicidal ideation" History of Present Illness HISTORY OF THE PRESENT ILLNESS: According to the ED report: "Referred by Therapist Chief Complaint Pt presented under the direction of therapist, Dr Javier Browning at [facility] clinic after a scheduled appt today. Pt expressed SI over the past week with thoughts of cutting wrists or hanging self. Pt says he has not been able to work due to increasing depression and thoughts of suicide. Pt feels unable to cope with the stress of his job. He also feels his newer medication, Paxil that was prescribed by Dr Barriga following his latest hospitalization, is ineffective. He has been taking it for about 3 weeks but says he feels more depressed. He has been sleeping excessively and expresses guilt over not being able to keep up with his job." Psychiatric Review of Systems Depression (2 or more weeks): depressed mood, anhedonia, insomnia/hypersomnia (hypersomnia for at least two weeks, if not longer), psychomotor agitation, feelings of letting his family down because he is hospitalized, ("I feel there's some guilt in there"), difficulty concentrating, decreased appetite, weight loss, loss of energy, suicidal thoughts Sophia (4 or more days of): denies Psychosis: denies PTSD: denies Anxiety: gen/non-specific anxiety, situational anxiety, stressor related anxiety, panic attacks Anxiety/ 6 months or more of: easily fatigued, difficulty concentrating, irritability, sleep disturbance Past Psychiatric History Prior Psychiatric Disorder: He reports a longstanding history of depression and anxiety Prior Psychiatric Admission: 3 times, last 10/12/16 and 10/09/17 , 11/24/17, 01/07 Outpatient Treatment: Goes for outpatient treatment at [facility]. He goes to Dr. Barriga and Javier Clarke. Suicidal/Self injurious: Has had suicidal ideation, passive. Psychotropic Medication History: Has been treated with Venlafaxine, Wellbutrin and Remeron without success. He was on Venlafaxine and was weaned from it in a 2 week period, then he was started on Wellbutrin and he didn't tolerate it because it made him very anxious. After Wellbutrin he was started on Remeron but it makes him too sleepy, rexulti not helpful. 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 Dr. Barriga has re started him on Paxil, Propranolol and Abilify Past Medical History Medical Problems denies Head Injury: No Seizures: No Hospitalizations: Yes Surgeries: For deviated septum Family Medical/Psychiatric HX Medical Problems denies Psychiatric Disorders: depression on maternal and paternal side of the family Addiction: Denies Suicide Attempts/Completions: He lost a cousin on his mother's side of the family Addiction History alcohol (occasional), he says that he has drank a little bit more than usual during the last couple of weeks. Social History Early Relations/development: Grew up [facility] [place], 2 parent home, good childhood. He says he was a rebellious adolescent and had lots of anger. Had problems channelling it the proper way. he was bullied and harassed in school. 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 Legal: A previous legal problem at a young age. He didn't elaborate. Marital: with 7y/o daughter Economic: work and home obligations are his main stressor Supports: and family. Abuse/trauma: Denies. Mental Status Examination Mental Status Examination General Appearance: well groomed, appears stated age, hospital clothes Build: average Demeanor: cooperative, pleasant, restless, very fidgety Eye Contact: average Activity: very anxious Behavior: cooperative, preoccupied, pleasant, restless Speech: clear, spontaneous, normal volume, reg/rate,rhythm,volume Mood: depressed, anxious Mood depressed Affect: constricted, congruent with mood, appropriate Thought Process: logical/linear Thought Content (Delusions): denies AV/SI, thought delusions Thought Content (Other): guilty thoughts, depressive thoughts, anxious thoughts Thought Content (Aggressive): none reported Perception (Hallucinations): none reported Perception (Other): none reported Cognition (Impairment of): none reported Cognition(Intelligence Est.): average Oriented: Awake, Alert, Oriented times three Insight: limited Judgment: limited Psychosis: Denies Diagnoses 1. 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 He was reassured that this was not going to happen. Initial Treatment Plan 1. Patient was admitted on a 9.39 status. 2. Complete history was obtained. 3. With patients permission, family will be contacted and database will be expanded. 4. Patients medication regimen will be reviewed and changed accordingly. 5. Patient will be provided with protected environment. 6. Patient will be treated with individual, group, and milieu therapies. 7. Patient will receive supportive psych-education. 8. Discharge planning will commence immediately. 9. Outpatient follow-up treatment will be strongly recommended. 10. The initial treatment plan will focus initially on: * Depression. * Risk for suicide. * Substance abuse. 11. Continue with Paxil 30 mgs PO daily, Propranolol PRN and Abilify 7.5 mgs PO QAM ESTIMATED LENGTH OF STAY: 5-7 DAYS. TIME SPENT COUNSELING AND COORDINATING INITIAL CARE: 60 minutes. Vital Signs Vital Signs Date Time Temp Pulse Resp B/P (MAP) Pulse Ox O2 Delivery O2 Flow Rate FiO2 03/28/18 09:55 84 131/87 03/28/18 07:00 97.3 14 Room Air 03/27/18 17:55 97 Medications Scheduled (Paroxetine) 30 Mg Tab, 30 MG PO QHS, (Reported) Aripiprazole (Aripiprazole) 15 Mg Tab, 7.5 MG PO QHS, (Reported) Scheduled PRN Propranolol HCl (Propranolol HCl) 10 Mg Tab, 10 MG PO TID PRN for ANXIETY, (Reported) Allergies Coded Allergies: No Known Allergies (Unverified , 10/12/16) DAQUAN GORDILLO MD Mar 28, 2018 15:34
[2018-03-28] MEDS ORDERED: PROPRANOLOL 10 MG TAB PO PRN (16:15)
[2018-03-28] MEDS ORDERED: ARIPiprazole 10 MG TAB PO ONE (16:15)
[2018-03-28] MEDS: ARIPiprazole 10 MG TAB PO SCH (16:39)
[2018-03-28] MEDS ORDERED: VENLAFAXINE 37.5 MG TAB PO ONE (17:00)
[2018-03-28] MEDS ORDERED: GABAPENTIN 300 MG CAP PO ONE (17:00)
[2018-03-28] MEDS: diphenhydrAMINE 25 MG CAP PO SCH (17:22)
[2018-03-28 18:00] VITALS: BP 128/81
[2018-03-28] MEDS: GABAPENTIN 300 MG CAP PO SCH (19:49)
[2018-03-29] MEDS: diphenhydrAMINE 25 MG CAP PO SCH ×4 (06:11→17:02)
[2018-03-29 06:34] VITALS: BP 130/95
[2018-03-29 08:06] VITALS: BP 139/93
[2018-03-29] MEDS: ARIPiprazole 10 MG TAB PO SCH (08:06)
[2018-03-29] MEDS: GABAPENTIN 300 MG CAP PO SCH ×3 (08:07→21:06)
[2018-03-29] MEDS: NICOTINE 21MG/24HR 1 EA TRANSDERMAL TD SCH (08:07)
[2018-03-29] MEDS ORDERED: VENLAFAXINE 37.5 MG TAB PO SCH (09:00)
[2018-03-29] MEDS ORDERED: VENLAFAXINE **XR** 37.5 MG CAPSULE PO ONE (09:45)
[2018-03-29 18:00] VITALS: BP 136/86
[2018-03-30] MEDS: diphenhydrAMINE 25 MG CAP PO SCH ×4 (00:20→17:25)
[2018-03-30 06:23] VITALS: BP 140/82
--- NOTE | 2018-03-30 08:17 | MHIPN ---
DATE: 03/29/2018 VITAL SIGNS: Temperature 99.7, pulse 100, respirations 16, blood pressure 130/95. CURRENT MEDICATION: - Effexor XR 37.5 mg every a.m. - gabapentin 300 mg three times a day - Abilify 10 mg every a.m. HISTORY OF PRESENT ILLNESS: The patient has history of major depression recurrent with frequent psychiatric hospitalizations. The patient reporting suicidal ideation recently. The patient was just started back on Effexor by Dr. Figueroa. The patient is tolerating it well. He tolerated the medication well in the past as well. His appetite is fair. The patient has lost 10-12 pounds over the past couple of months. The patient was struggling with hypersomnia. His sleep patterns were more appropriate last night. He is anxious about a possible trip to the [facility] coming up soon. The patient is ambivalent. He will consider his options, discussing it with his doctor and his family. The patient would like to increase his dose of Effexor XR, which appears appropriate. MENTAL STATUS EXAMINATION: The patient is alert, oriented and cooperative. Affect is sad. Mood is moderately depressed with passive suicidal thoughts. No active intent. No signs of psychosis. Grooming and hygiene are good. Affect appears flat. Some Parkinsonian symptoms. Insight and judgment are fair. No signs of psychosis. Cognitive function appears intact. DIAGNOSIS: Major depression, recurrent, severe. PLAN: Increase Effexor XR. Monitor mood closely. Monitor suicide potential. Involve in hospital milieu.
[2018-03-30] MEDS: NICOTINE 21MG/24HR 1 EA TRANSDERMAL TD SCH (09:00)
[2018-03-30] MEDS: VENLAFAXINE 37.5 MG TAB PO SCH (09:36)
[2018-03-30] MEDS: GABAPENTIN 300 MG CAP PO SCH ×3 (09:36→21:08)
[2018-03-30] MEDS: ARIPiprazole 10 MG TAB PO SCH (09:37)
[2018-03-30 18:00] VITALS: BP 113/74
[2018-03-31] MEDS: diphenhydrAMINE 25 MG CAP PO SCH ×5 (05:12→23:12)
[2018-03-31 06:20] VITALS: BP 139/92
--- NOTE | 2018-03-31 06:56 | MHIPN ---
DATE OF VISIT: 03/30/2018 VITAL SIGNS: Temperature 99.3, pulse 85, respirations 16, blood pressure 140/82. CURRENT MEDICATION: - Effexor XR 75 mg every morning - gabapentin 300 mg three times a day - Abilify 10 mg every morning - trazodone 50 mg nightly as needed HISTORY OF PRESENT ILLNESS: The patient states he feels less anxious and less restless. He feels his anxiety symptoms are under better control since being back on the Effexor. He feels comfortable increasing the dosage again. He claims he had tolerated it well in the past. He has now decided to go on his trip to the [facility] with his family. He feels more competent about this. He hopes to be discharged midweek. The patient has been active in the milieu, attending all therapy groups, etc. MENTAL STATUS EXAM: The patient is alert, oriented and cooperative. Affect remains sad, mood remains mildly to moderately depressed. Suicidal ideation has resolved. He is nonpsychotic. [place] and hygiene remain good. Affect is still flat with some parkinsonian symptoms. Insight and judgment appear recently good. The patient is nonpsychotic. Cognitive functions appear intact. DIAGNOSIS: Major depression, recurrent. PLAN: 1. Increase the Effexor XR to 150 mg every morning. 2. Continue milieu therapy. 3. Dr. Figueroa to return to evaluate the patient tomorrow.
[2018-03-31] MEDS: GABAPENTIN 300 MG CAP PO SCH ×3 (08:32→20:34)
[2018-03-31] MEDS: VENLAFAXINE 37.5 MG TAB PO SCH (08:32)
[2018-03-31] MEDS: ARIPiprazole 10 MG TAB PO SCH (08:32)
[2018-03-31] MEDS: NICOTINE 21MG/24HR 1 EA TRANSDERMAL TD SCH (08:34)
[2018-03-31 18:00] VITALS: BP 136/77
--- NOTE | 2018-03-31 18:09 | MHIPNPDOC ---
[facility] Progress Note Progress Note DATE OF SERVICE: 03/31/18 HISTORY: Chief Complaint "suicidal ideation" History of Present Illness HISTORY OF THE PRESENT ILLNESS: According to the ED report: "Referred by Therapist Chief Complaint Pt presented under the direction of therapist, Dr Javier Browning at [facility] clinic after a scheduled appt today. Pt expressed SI over the past week with thoughts of cutting wrists or hanging self. Pt says he has not been able to work due to increasing depression and thoughts of suicide. Pt feels unable to cope with the stress of his job. He also feels his newer medication, Paxil that was prescribed by Dr Barriga following his latest hospitalization, is ineffective. He has been taking it for about 3 weeks but says he feels more depressed. He has been sleeping excessively and expresses guilt over not being able to keep up with his job." VITAL SIGNS: See below. NEW TEST RESULTS: See below CURRENT MEDICATIONS: See below. MENTAL STATUS EXAMINATION: Patient is a 42 year old male, who is alert, cooperative, pleasant, dressed in hospital clothes. Speech: normal in rhythm, tne and volume. Language skills are good. Thought processes including: intact. Thought content: he still has anxious thoughts about him going or not going on a trip on Saturday. Description of abnormal or psychotic thoughts: Denies SI, denies HI, denies AV hallucinations, denies thought delusions Judgment: improving Insight: improving. Orientation: x 3. Recent and remote memory: intact. Attention span and concentration: good. Language: good. Fund of knowledge: above average. Mood: anxious. Affect: congruent with mood, less anxious than last week, moderately depressed, not suicidal DIAGNOSES: 1. major Depressive disorder, recurrent 2. Generalized Anxiety disorder ASSESSMENT: Patient is les anxious today, has less psychomotor agitation, his affect is still constricted. He worries about his trip to the [employer], but he is going with his who is going to be holding to his medications, making sure he doesn't take more than he should. Patient will be discharged tomorrow to his so than he can prepare for the trip. MANAGEMENT PLAN: Increased Venlafaxine to 225 mgs. He will start that dose tomorrow. TIME SPENT: 20 minutes. Vital Signs Vital Signs Date Time Temp Pulse Resp B/P (MAP) Pulse Ox O2 Delivery O2 Flow Rate FiO2 03/31/18 09:48 Room Air 03/31/18 06:20 98.5 87 14 139/92 (108) 03/27/18 17:55 97 Current Medications Current Medications Acetaminophen (Tylenol Tab) 650 mg Q6HP PRN PO HEADACHE or DISCOMFORT; Start 03/27/18 at 16:45 Al Hydrox/Mg Hydrox/Simethicone (Mylanta) 30 ml Q4HP PRN PO HEARTBURN/INDIGESTION; Start 03/27/18 at 16:45 Aripiprazole (AbiLIFY) 10 mg QAM PO Last administered on 03/31/18at 08:32; Start 03/28/18 at 09:00 Diphenhydramine HCl (Benadryl) 25 mg Q6H PO Last administered on 03/31/18at 17:36; Start 03/28/18 at 18:00 Gabapentin (Neurontin) 300 mg TID PO Last administered on 03/31/18at 15:57; Start 03/28/18 at 21:00 Home Med (Med Rec Complete!) ASDIRECTED XX ; Start 03/27/18 at 16:30; Stop 03/27/18 at 16:32; Status DC Magnesium Hydroxide (Milk Of Magnesia) 30 ml DAILYPRN PRN PO CONSTIPATION; Start 03/27/18 at 16:45 Nicotine (Nicoderm Cq 21mg) 1 patch DAILY TD ; Start 03/27/18 at 09:00 Paroxetine HCl (PAXil) 40 mg DAILY PO ; Start 03/28/18 at 09:00; Status Cancel Propranolol HCl (Inderal) 10 mg Q8HP PRN PO ANXIETY Last administered on 03/28/18at 09:55; Start 03/28/18 at 00:00; Stop 03/28/18 at 16:11; Status DC Propranolol HCl (Inderal) 10 mg TIDP PRN PO ANXIETY Last administered on 03/29/18at 08:06; Start 03/28/18 at 16:15 Trazodone HCl (Desyrel) 50 mg QHSP PRN PO INSOMNIA Last administered on 03/27/18at 22:00; Start 03/27/18 at 16:45 Venlafaxine HCl (Effexor) 37.5 mg DAILY PO Last administered on 03/29/18at 08:06; Start 03/29/18 at 09:00; Stop 03/30/18 at 08:49; Status DC Venlafaxine HCl (Effexor) 150 mg DAILY PO Last administered on 03/31/18at 08:32; Start 03/30/18 at 09:00 Allergies Coded Allergies: No Known Allergies (Unverified , 10/12/16) DAQUAN GORDILLO MD Mar 31, 2018 18:03
[2018-04-01] MEDS: diphenhydrAMINE 25 MG CAP PO SCH ×2 (06:10→11:34)
[2018-04-01 06:50] VITALS: BP 140/84
[2018-04-01] MEDS: NICOTINE 21MG/24HR 1 EA TRANSDERMAL TD SCH (09:00)
[2018-04-01] MEDS ORDERED: VENLAFAXINE 37.5 MG TAB PO SCH (09:00)
[2018-04-01] MEDS ORDERED: ARIP10TAB PO (09:12)
[2018-04-01] MEDS ORDERED: VENL37TA PO (09:12)
[2018-04-01] MEDS ORDERED: TRAZO50TA PO (09:12)
[2018-04-01] MEDS ORDERED: PROP10TA56 PO (09:12)
[2018-04-01] MEDS ORDERED: GABA-843 PO (09:12)
[2018-04-01] MEDS ORDERED: DIPH25CA PO (09:12)
[2018-04-01] MEDS: GABAPENTIN 300 MG CAP PO SCH (09:33)
[2018-04-01] MEDS: ARIPiprazole 10 MG TAB PO SCH (09:33)
--- NOTE | 2018-04-13 22:44 | MHDSPDOC ---
[facility] Discharge Summary Discharge Summary DATE OF ADMISSION: Mar 27, 2018 at 16:39 DATE OF DISCHARGE: Apr 01, 2018 at 12:00 DISCHARGE DIAGNOSES: 1. major Depressive disorder, recurrent 2. Generalized Anxiety disorder REASON FOR ADMISSION: Chief Complaint "suicidal ideation" History of Present Illness HISTORY OF THE PRESENT ILLNESS: According to the ED report: "Pt presented under the direction of therapist, Dr Javier Browning at [facility] clinic after a scheduled appt today. Pt expressed SI over the past week with thoughts of cutting wrists or hanging self. Pt says he has not been able to work due to increasing depression and thoughts of suicide. Pt feels unable to cope with the stress of his job. He also feels his newer medication, Paxil that was prescribed by Dr Barriga following his latest hospitalization, is ineffective. He has been taking it for about 3 weeks but says he feels more depressed. He has been sleeping exce ssively and expresses guilt over not being able to keep up with his job." CONSULTANTS INVOLVED: None TREATMENT AND PROGRESS ON THE UNIT : Patient reported to feeling overwhelmed by his job, he had been feeling very anxious and had suicidal ideation. He reported he was not feeling any improvement with Paxil, he said he felt more depressed. This singer songwriter tapered down Paxil and started him on Effexor. The patient also received Gabapentin and Propranolol for anxiety. The patient has been at the [facility] before and he says that he feels an incredible guilt for not being able to do his job as effectively as he would like to because he is always sleepy. He feels that he can't share much with his and family, despite them being very supportive because he feels always depressed. He said he had a trip by the end of he week to go to the [facility], and he was hesitant to go, always thinking if he should or if he shouldn't. I encouraged him to go because I think he needs a change. His was going to take care of his medications, and she was going to hold to them all the time. At the time of his discharge, he was not homicidal, not suicidal and not psychotic HOSPITAL COURSE: ABOVE. DISCHARGE ASSESSMENT: PATIENT WAS NOT SUICIDAL, NOT HOMICIDAL AND NOT PSYCHOTIC AT THE TIME OF HIS DISCHARGE. MENTAL STATUS EXAMINATION ON DISCHARGE: Patient is a 42 year old male, who is alert, cooperative, pleasant, dressed in hospital clothes. Speech: normal in rhythm, tne and volume. Language skills are good. Thought processes including: intact. Thought content: he still has anxious thoughts about him going or not going on a trip on Saturday. Description of abnormal or psychotic thoughts: Denies SI, denies HI, denies AV hallucinations, denies thought delusions Judgment: improving Insight: improving. Orientation: x 3. Recent and remote memory: intact. Attention span and concentration: good. Language: good. Fund of knowledge: above average. Mood: anxious. Affect: congruent with mood, less anxious than last week, moderately depressed, not suicidal MEDICATIONS ON DISCHARGE: Scheduled Aripiprazole (Aripiprazole) 10 Mg Tab, 10 MG PO QAM for mood, #30 Diphenhydramine HCl (Diphenhydramine HCl) 25 Mg Cap, 25 MG PO Q6H for extrapyramidal side effects, #130 Gabapentin (Gabapentin) 300 Mg Cap, 300 MG PO TID for anxiety/pain, #90 Venlafaxine HCl (Venlafaxine HCl) 37.5 Mg Tab, 225 MG PO DAILY for depression, #126 Scheduled PRN Propranolol HCl (Propranolol HCl) 10 Mg Tab, 10 MG PO TID PRN for ANXIETY, #21 Trazodone HCl (Trazodone HCl) 50 Mg Tab, 50 MG PO QHSP PRN for INSOMNIA, #30 PLAN/FOLLOWUP ARRANGEMENTS: Follow Up Care Education Label * Mental Health Appt 1 * Mental Health [facility] * Established With This Provider Yes * Date Apr 02, 2018 * Time 13:00 * Address of Clinic or Practice [address] [place] [address] * * Additional information With Dr Browning Follow Up Care Education Label * Medical * Medical Follow Up [facility] * Established With This Provider Yes * Therapist DR. YOUNG * Date Apr 10, 2018 * Time 13:30 * Address of Clinic or Practice [address] [place] [address] * The amount of time spent in the coordination of care for this patient was approximately 30 minutes. Medications Scheduled Aripiprazole (Aripiprazole) 10 Mg Tab, 10 MG PO QAM for mood, #30 Diphenhydramine HCl (Diphenhydramine HCl) 25 Mg Cap, 25 MG PO Q6H for extrapyramidal side effects, #130 Gabapentin (Gabapentin) 300 Mg Cap, 300 MG PO TID for anxiety/pain, #90 Venlafaxine HCl (Venlafaxine HCl) 37.5 Mg Tab, 225 MG PO DAILY for depression, #126 Scheduled PRN Propranolol HCl (Propranolol HCl) 10 Mg Tab, 10 MG PO TID PRN for ANXIETY, #21 Trazodone HCl (Trazodone HCl) 50 Mg Tab, 50 MG PO QHSP PRN for INSOMNIA, #30 Allergies Coded Allergies: No Known Allergies (Unverified , 10/12/16) DAQUAN GORDILLO MD Apr 13, 2018 22:29
== END 2018-04-01 12:00 | disposition home or self-care (01) | DRG 885 ==
LOC: M ED 12:58 → M ED INP 16:39 → M PSY 18:25
PROVIDERS: ADMIT Psychiatry & Neurology Psychiatry; ATTEND Psychiatry & Neurology Psychiatry
DX: F33.2 Major depressive disorder, recurrent severe without psychotic features (principal); J30.9 Allergic rhinitis, unspecified; F41.1 Generalized anxiety disorder; Z62.811 Personal history of psychological abuse in childhood; Z79.899 Other long term (current) drug therapy; Z56.3 Stressful work schedule

== ENCOUNTER → 2018-05-27 | Outpatient (REF) | payer OTHER ==
[~2018-05-27] MED LIST changes: +ARIP10TAB PO; +DIPH25CA PO; +GABA-843 PO; +PARO15TA; +PARO30TA3 PO; +VENL37TA PO
[2018-05-27 11:34] LABS: HEMOGLOBIN A1c 5.3 %
== END ==
LOC: M SFHCPLAZ 09:09
PROVIDERS: ATTEND Nurse Practitioner Family
DX: F41.8 Other specified anxiety disorders (principal); E78.2 Mixed hyperlipidemia; Z68.31 Body mass index [BMI] 31.0-31.9, adult; E55.9 Vitamin D deficiency, unspecified

== ENCOUNTER 2018-08-06 14:19 | Inpatient (IN) | payer OTHER ==
[~2018-08-06] VITALS: Ht 182.9 cm; Wt 103.8 kg
[~2018-08-06 14:19] MED LIST changes: -ARIP10TAB PO; -ARIP15TAB PO; +ARIP1TAB PO; +ARIP1TAB10 PO; +ARIP1TAB6 PO; -ARIP5TA PO; +PROP10TA55 PO; -PROP10TAB PO; +SERT-141 PO; -SERT50TA PO
[2018-08-06 15:18] LABS: HEMATOCRIT 40.7 % (42.0-52.0); HEMOGLOBIN 14.3 g/dl (13.5-17.5); MEAN CORPUSCULAR HEMOGLOBIN 30.6 pg (27.0-33.0); MEAN CORPUSCULAR HGB CONC 35.1 g/dl (32.0-36.5); MEAN CORPUSCULAR VOLUME 87.2 fl (80.0-96.0); PLATELET COUNT, AUTOMATED 250 10^3/uL (150-450); RED BLOOD COUNT 4.67 10^6/uL (4.30-6.10); WHITE BLOOD COUNT 6.7 10^3/uL (4.0-10.0)
[2018-08-06 15:36] LABS: AMPHETAMINES LEVEL URINE NEGATIVE (NEGATIVE); BARBITURATES URINE NEGATIVE (NEGATIVE); BENZODIAZEPINES URINE NEGATIVE (NEGATIVE); CANNABINOIDS URINE NEGATIVE (NEGATIVE); COCAINE METABOLITE URINE NEGATIVE (NEGATIVE); METHADONE URINE NEGATIVE (NEGATIVE); OPIATES URINE NEGATIVE (NEGATIVE); PHENCYCLIDINE URINE NEGATIVE (NEGATIVE)
[2018-08-06 15:46] LABS: ACETAMINOPHEN LEVEL < 2.0 UG/ML (10.0-30.0); ALBUMIN 4.3 GM/DL (3.2-5.2); ALT/SGPT 40 U/L (12-78); BILIRUBIN,DIRECT < 0.1 MG/DL (0.0-0.2); BILIRUBIN,TOTAL 0.4 MG/DL (0.2-1.0); BLOOD UREA NITROGEN 10 MG/DL (7-18); CALCIUM LEVEL 9.1 MG/DL (8.5-10.1); CARBON DIOXIDE LEVEL 27 MEQ/L (21-32); CHLORIDE LEVEL 105 MEQ/L (98-107); ETHYL ALCOHOL (ETHANOL) < 0.003 % (0.000-0.010); GLOMERULAR FILTRATION RATE > 60.0 (>60); GLUCOSE, FASTING 106 MG/DL (70-100); POTASSIUM SERUM 3.7 MEQ/L (3.5-5.1); SALICYLATE LEVEL < 1.7 MG/DL (5.0-30.0); SODIUM LEVEL 140 MEQ/L (136-145)
[2018-08-06] MEDS ORDERED: MAALOX 30 ML SUSP *UDC PO PRN (17:00)
[2018-08-06] MEDS ORDERED: MOM 30ML SUSPENSION UDC PO PRN (17:00)
[2018-08-06] MEDS ORDERED: ACETAMINOPHEN TAB 650MG DOSE (2X325MG) PO PRN (17:00)
[2018-08-06] MEDS ORDERED: ABIL10TA9 PO (17:38)
[2018-08-06] MEDS ORDERED: GABA-843 PO (17:38)
[2018-08-06] MEDS ORDERED: VENL150C43 PO (17:38)
[2018-08-06 19:25] VITALS: BP 141/90
[2018-08-06] MEDS: GABAPENTIN 300 MG CAP PO SCH (20:44)
[2018-08-07 06:31] VITALS: BP 129/77
[2018-08-07] MEDS ORDERED: VENLAFAXINE 37.5 MG TAB PO SCH (09:00)
[2018-08-07] MEDS: NICOTINE 21MG/24HR 1 EA TRANSDERMAL TD SCH (09:00)
[2018-08-07] MEDS: ARIPiprazole 10 MG TAB PO SCH (09:21)
[2018-08-07] MEDS: GABAPENTIN 300 MG CAP PO SCH ×3 (09:21→20:56)
[2018-08-07] MEDS: VENLAFAXINE **XR** 75MG CAPSULE PO SCH (09:22)
--- NOTE | 2018-08-07 10:23 | CR.PDOC ---
General Date of Consultation: Aug 07, 2018 Referring Provider: Delma Maynard Consultation REASON FOR CONSULTATION/CHIEF COMPLAINT: Abnormal blood glucose HISTORY OF PRESENT ILLNESS: The patient is a 43-year-old gentleman with history of recurrent depression who is currently admitted to inpatient mental health unit for suicidal ideation. Consultation is requested for evaluation of patient's hyperglycemia. The patient denies any previous problems of diabetes mellitus. He does see a primary care provider routinely. Reports the laboratory yesterday was not when he was fastinghe had eaten a short while before lab. Denies any problems with headache/dizziness. No change in vision. No nausea or vomiting today. At times he has some nausea that he attributes to anxiety. Denies abdominal pain. No chest pain or shortness of breath. No change in his bladder or bowel habits. No new joint pains or skin rashes. ALLERGIES: Please see below. HOME MEDICATIONS: Please see below. PAST MEDICAL HISTORY: Seasonal allergies/cough, depression, anxiety, deviated nasal septum status post septoplasty PAST SURGICAL HISTORY: As noted above FAMILY HISTORY: Depression runs in the family SOCIAL HISTORY: No tobacco use or drug use. Occasional alcohol. REVIEW OF SYSTEMS: Negative for 10 systems except as noted under HPI PHYSICAL EXAMINATION: VITAL SIGNS: Please see below. GENERAL APPEARANCE: NAD. Sitting up in bed HEENT: PERRL, oral mucous membranes moist RESPIRATORY: Clear bilaterally. Good air entry CARDIOVASCULAR: S1, S2 heard, no rubs or gallops ABDOMEN: Soft, nontender EXTREMITIES: No edema. Peripheral pulses palpable NEUROLOGICAL: Awake, alert, oriented 3. Moving all 4 extremities. Gait appears normal. No lateralizing deficit. LABORATORY DATA: Please see below. ASSESSMENT/PLAN: Abnormal blood glucose: -Lab draw was nonfasting. -Advised patient follow-up with his primary care provider and outpatient fasting blood glucosehe expresses understanding of the same. No additional workup needed Depression: -Management per psychiatry Thank you for the consultation. I will sign off. Please call with any questions. Vital Signs/I&O Vital Signs Date Time Temp Pulse Resp B/P (MAP) Pulse Ox O2 Delivery O2 Flow Rate FiO2 08/07/18 06:31 98.2 81 14 129/77 (94) 08/06/18 19:25 98 08/06/18 14:19 Room Air Laboratory Data Labs 24H Laboratory Tests 2 08/06/18 15:05: Nucleated Red Blood Cells % (auto) 0.0, Anion Gap 8, Glomerular Filtration Rate > 60.0, Calcium Level 9.1, Aspartate Amino Transf (AST/SGOT) 12, Alanine Aminotransferase (ALT/SGPT) 40, Alkaline Phosphatase 77, Total Bilirubin 0.4, Direct Bilirubin < 0.1, Total Protein 7.0, Albumin 4.3, Albumin/Globulin Ratio 1.59, Thyroid Stimulating Hormone (TSH) 2.480, Salicylates Level < 1.7L, Urine Amphetamines Screen NEGATIVE, Urine Benzodiazepines Screen NEGATIVE, Urine Opiates Screen NEGATIVE, Urine Methadone Screen NEGATIVE, Acetaminophen Level < 2.0L, Urine Barbiturates Screen NEGATIVE, Urine Phencyclidine Screen NEGATIVE, Urine Cocaine Metabolite Screen NEGATIVE, Urine Cannabinoids Screen NEGATIVE, Ethyl Alcohol Level < 0.003 CBC/BMP Laboratory Tests 08/06/18 15:05 Red Blood Count 4.67, Mean Corpuscular Volume 87.2, Mean Corpuscular Hemoglobin 30.6, Mean Corpuscular Hemoglobin Concent 35.1, Red Cell Distribution Width 12.3 Allergies Coded Allergies: No Known Allergies (Unverified , 10/12/16) Home Medications Scheduled Aripiprazole (Abilify) 10 Mg Tablet, 10 MG PO DAILY, (Reported) Gabapentin (Gabapentin) 300 Mg Capsule, 300 MG PO TID, (Reported) Venlafaxine HCl (Venlafaxine HCl ER) 150 Mg Cap.er.24h, 300 MG PO DAILY, (Re ported) DOSE WAS INCREASED FROM 225MG TO 300MG ON 07/15/18 JON PRATT MD Aug 07, 2018 10:23
[2018-08-07] MEDS ORDERED: PILL CRUSHER/CUTTER 1 EACH XX PRN (17:00)
--- NOTE | 2018-08-07 17:11 | MHHPEPDOC ---
[facility] History & Physical History and Physical DATE OF ADMISSION: Aug 06, 2018 at 16:56 LEGAL STATUS AT ADMISSION: 9.39 CHIEF COMPLAINT: Increasing depression accompanied with SI (active). HISTORY OF PRESENT ILLNESS: Patient is a 43-year-old male, who according to ED report: "PT states he had SI with plan and is pursuing ECT PT states that he is in treatment with Dr. Wilson via [facility] and that they have discussed ECT. PT has had depression for most of his life and he will cycle with increased symptoms to inpatient with med changes and then he feels better until his next cycle and he is frusterated. For the past several days PT has been experiencing severe anxiety that is borderline panic and depression with a thought to hang himself. Per TC to Dr. Wilson he has discussed a direct admission to [facility] for ECT but as of yesterday they did not have a bed available. One plan would be for PT to be admitted to [facility] and then transferred to [facility]. Another plan would be for PT to be see in the ED at [facility] for possible admission that way. They looked into outpatient ECT via [facility] or [facility] but PT is preferring inpatient. Dr. Wilson states that his nurse is assisting with them plan and is a reference point for PT. PT is scheduled to see psychologist in the morning. Per PT yesterday he was at his appointment and he envisioned himself taking his belt off and hanging himself. He feels he is "borderline" in terms of if he would harm himself or not and he is agreeable to being admitted tonight. PT cannot CFS with confidence. * This instructional writer spoke with Dr. Wilson who told me about Dr. Hobbs who is in charge of the ECT Inpatient program at [facility]. Dr. Wilson says he has already spoken to him and Dr. Hobbs would be willing to treat the patient but this one needs to be transferred. Discharge Planners will inquire about this with [facility] to see if we can work things out and transfer the patient directly over there. Dr. wilson also mentioned Dr. Villegas who is in charge of the Outpatient treatment program for ECT and apparently is already using ketamine for depression. However Inpatient would be better for the patient. Depression (2 or more weeks): depressed mood, anhedonia, insomnia/hypersomnia (hypersomnia since about one month ago), psychomotor agitation/psychomotor retardation, feelings of guilt as on his previous admissions because he feels he has let his family down, difficulty concentrating, erratic appetite, weight has remained stable, loss of energy, suicidal thoughts ( the last one was this morning) Sophia (4 or more days of): denies Psychosis: denies PTSD: denies Anxiety: gen/non-specific anxiety, situational anxiety, stressor related anxiety ( he says "it's always work but there's things at home that I'm worried too", panic attacks Anxiety/ 6 months or more of: easily fatigued, difficulty concentrating, irr itability ( at times) , sleep disturbance (oversleeping lately) Past Psychiatric History Prior Psychiatric Disorder: He reports a longstanding history of depression and anxiety Prior Psychiatric Admission: 3 times, last 10/12/16 and 10/09/17 , 11/24/17, 01/07, 04/08 Outpatient Treatment: Goes for outpatient treatment at [facility]. He goes to Dr. Wilson and Javier Clarke. Suicidal/Self injurious: Has had suicidal ideation, passive. Psychotropic Medication History: Has been treated with Venlafaxine, Wellbutrin and Remeron without success. He was on Venlafaxine and was weaned from it in a 2 week period, then he was started on Wellbutrin and he didn't tolerate it because it made him very anxious. After Wellbutrin he was started on Remeron but it makes him too sleepy, Rexulti was not helpful. 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 Dr. Wilson has re started him on Paxil, Propranolol and Abilify but during his last hospitalization tw started to wean him off Paxil and started Venlafaxine. this was in March. he says he did well for about 3 months and then, once again, he started to feel depressed about one month ago. Past Medical History Medical Problems "Nothing significant" Head Injury: No Seizures: No Hospitalizations: Yes Surgeries: For deviated septum Family Medical/Psychiatric HX Medical Problems denies Psychiatric Disorders: depression on maternal and paternal side of the family Addiction: Denies Suicide Attempts/Completions: He lost a cousin on his mother's side of the family Addiction History alcohol (occasional, 2-4x /month) Social History Early Relations/development: G[place] up [place], 2 parent home, good childhood. He says he was a rebellious adolescent and had lots of anger. Had problems channelling it the proper way. he was bullied and harassed in school. 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 Legal: A previous legal problem at a young age. He didn't elaborate. Marital: with 8 y/o daughter Economic: work and home obligations are his main stressor Supports: His and his family Abuse/trauma: Denies Mental Status Examination Mental Status Examination General Appearance: well groomed, appears stated age, hospital clothes Build: average Demeanor: cooperative, pleasant, occasionally restless but less than before Eye Contact: average Activity: anxious/depressed Behavior: cooperative, preoccupied, pleasant, calm and restless at times Speech: clear, spontaneous, normal volume, reg/rate,rhythm,volume Mood: depressed, mildly anxious Mood depressed Affect: constricted, congruent with mood, appropriate Thought Process: logical/linear Thought Content (Delusions): denies AV hallucinations and denies thought delusions. Admits SI, the last SI was this morning. he has contemplated hanging himself with a belt Thought Content (Other): guilty thoughts, depressive thoughts, anxious thoughts Thought Content (Aggressive): none reported Perception (Hallucinations): none reported Perception (Other): none reported Cognition (Impairment of): none reported Cognition(Intelligence Est.): average Oriented: Awake, Alert, Oriented times three Insight: limited Judgment: limited Psychosis: Denies Diagnoses 1. 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 He has discussed this issue with Dr. Wilson who is his Outpatient provider. this instructional writer spoke with Dr. Wilson who told me he has spoken with Dr. Hobbs from [facility] in charge of the Inpatient ECT Program and he also spoke with Dr. Villegas, the Outpatient ECT DrJuanita at [facility]. The patient is willing to go to these procedure and try new alternatives. Dr. Villegas is using ketamine to treat depression too. Initial Treatment Plan 1. Patient was admitted on a 9.39 status. 2. Complete history was obtained. 3. With patients permission, family will be contacted and database will be expanded. 4. Patients medication regimen will be reviewed and changed accordingly. 5. Patient will be provided with protected environment. 6. Patient will be treated with individual, group, and milieu therapies. 7. Patient will receive supportive psych-education. 8. Discharge planning will commence immediately. 9. Outpatient follow-up treatment will be strongly recommended. 10. The initial treatment plan will focus initially on: * Depression. * Anxiety * Risk for suicide. * Ineffective coping ESTIMATED LENGTH OF STAY: 5-7 DAYS. TIME SPENT COUNSELING AND COORDINATING INITIAL CARE: 60 minutes. Vital Signs Vital Signs Date Time Temp Pulse Resp B/P (MAP) Pulse Ox O2 Delivery O2 Flow Rate FiO2 08/07/18 06:31 98.2 81 14 129/77 (94) 08/06/18 19:25 98 08/06/18 14:19 Room Air Medications Scheduled Aripiprazole (Abilify) 10 Mg Tablet, 10 MG PO DAILY, (Reported) Gabapentin (Gabapentin) 300 Mg Capsule, 300 MG PO TID, (Reported) Venlafaxine HCl (Venlafaxine HCl ER) 150 Mg Cap.er.24h, 300 MG PO DAILY, (Reported) DOSE WAS INCREASED FROM 225MG TO 300MG ON 07/15/18 Allergies Coded Allergies: No Known Allergies (Unverified , 10/12/16) DAQUAN GORDILLO MD Aug 07, 2018 16:42
[2018-08-07 18:07] VITALS: BP 127/74
[2018-08-08 07:00] VITALS: BP 128/76
[2018-08-08] MEDS: GABAPENTIN 300 MG CAP PO SCH ×3 (08:21→21:02)
[2018-08-08] MEDS: ARIPiprazole 10 MG TAB PO SCH (08:21)
[2018-08-08] MEDS: VENLAFAXINE **XR** 75MG CAPSULE PO SCH (08:22)
[2018-08-08] MEDS: NICOTINE 21MG/24HR 1 EA TRANSDERMAL TD SCH (08:22)
--- NOTE | 2018-08-08 11:52 | MHIPNPDOC ---
[facility] Progress Note Progress Note DATE OF SERVICE: 08/08/18 HISTORY: HISTORY OF PRESENT ILLNESS: Patient is a 43-year-old male, who according to ED report: "PT states he had SI with plan and is pursuing ECT PT states that he is in treatment with Dr. Wilson via [facility] and that they have discussed ECT. PT has had depression for most of his life and he will cycle with increased symptoms to inpatient with med changes and then he feels better until his next cycle and he is frusterated. For the past several days PT has been experiencing severe anxiety that is borderline panic and depression with a thought to hang himself. Per TC to Dr. Wilson he has discussed a direct admission to [facility] for ECT but as of yesterday they did not have a bed available. One plan would be for PT to be admitted to [facility] and then transferred to [facility]. Another plan would be for PT to be see in the ED at [facility] for possible admission that way. They looked into outpatient ECT via [facility] or [facility] but PT is preferring inpatient. Dr. Wilson states that his nurse is assisting with them plan and is a reference point for PT. PT is scheduled to see psychologist in the morning. Per PT yesterday he was at his appointment and he envisioned himself taking his belt off and hanging himself. He feels he is "borderline" in terms of if he would harm himself or not and he is agreeable to being admitted tonight. PT cannot CFS with confidence. * This sba underwriter spoke with Dr. Wilson who told me about Dr. Hobbs who is in charge of the ECT Inpatient program at [facility]. Dr. Wilson says he has already spoken to him and Dr. Hobbs would be willing to treat the patient but this one needs to be transferred. Discharge Planners will inquire about this with [facility] to see if we can work things out and transfer the patient directly over there. Dr. wilson also mentioned Dr. Villegas who is in charge of the Outpatient treatment program for ECT and apparently is already using ketamine for depression. However Inpatient would be better for the patient. VITAL SIGNS: See below. NEW TEST RESULTS: See below. CURRENT MEDICATIONS: See below. MENTAL STATUS EXAMINATION: General Appearance: well groomed, appears stated age, hospital clothes, good hygiene Build: average Demeanor: cooperative, pleasant, restless and very fidgety Eye Contact: average Activity: anxious/depressed Behavior: cooperative, preoccupied, restless and fidgety Speech: clear, spontaneous, normal volume, reg/rate,rhythm,volume Mood: very anxious/very depressed (anxiety is 9.5/10 and depression is 9.5/10) Mood depressed/anxious Affect: constricted, congruent with mood Thought Process: logical/linear Thought Content (Delusions): denies AV hallucinations and denies thought delusions. Thought Content (Other): guilty thoughts, depressive thoughts, anxious thoughts. Had SI, has considered hanging himself with his belt and he has envisioned himself hanging from the roof. the last time was this morning after he woke up. Denies HI Thought Content (Aggressive): none reported Perception (Hallucinations): none reported Perception (Other): none reported Cognition (Impairment of): none reported Cognition(Intelligence Est.): average Oriented: Awake, Alert, Oriented times three Insight: limited (due to his cognitive distortions) Judgment: fair (he is asking for an ECT-he wants to overcome the illness) Psychosis: Denies Diagnoses 1. 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 He thought bout it this morning shortly after he woke up. He says his depression is a 9//10 and his anxiety is the same. 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 Spoke about the possibility of doing something different in the future, as a alf goal. He has been accepted at [facility] for ECT, Inpatient and probably he will be transferred between today and Saturday. He says he is not nervous about the procedure (we spoke about this yesterday). He wants to have the procedure because he can't keep on living like this anymore. the patient is genuinely depressed and very anxious. He has a very similar presentation to previous ones, he has had recurrent and severe depression, he is genetically predisposed to it from both sides of the family and one of his cousins commited suicide years ago (from the maternal side of the family). the patient is on edge, always in a high risk for suicide. He is able to CFS at this time. MANAGEMENT PLAN: ECG TIME SPENT: 15 minutes. Vital Signs Vital Signs Date Time Temp Pulse Resp B/P (MAP) Pulse Ox O2 Delivery O2 Flow Rate FiO2 08/08/18 07:00 98.8 95 14 128/76 (93) 08/06/18 19:25 98 08/06/18 14:19 Room Air Current Medications Current Medications Acetaminophen (Tylenol Tab) 650 mg Q6HP PRN PO HEADACHE or DISCOMFORT; Start 08/06/18 at 17:00 Al Hydrox/Mg Hydrox/Simethicone (Mylanta) 30 ml Q4HP PRN PO HEARTBURN/INDIGESTION; Start 08/06/18 at 17:00 Aripiprazole (AbiLIFY) 2.5 mg QHS PO Last administered on 08/07/18at 20:56; Start 08/07/18 at 21:00 Aripiprazole (AbiLIFY) 10 mg DAILY PO Last administered on 08/08/18at 08:21; Start 08/07/18 at 09:00 Gabapentin (Neurontin) 300 mg TID PO Last administered on 08/08/18at 08:21; Start 08/06/18 at 21:00 Home Med (Med Rec Complete!) ASDIRECTED XX ; Start 08/06/18 at 17:45; Stop 08/06/18 at 17:45; Status DC Magnesium Hydroxide (Milk Of Magnesia) 30 ml DAILYPRN PRN PO CONSTIPATION; Start 08/06/18 at 17:00 Nicotine (Nicoderm Cq 21mg) 1 patch DAILY TD ; Start 08/07/18 at 09:00; Stop 08/08/18 at 08:27; Status DC Trazodone HCl (Desyrel) 50 mg QHSP PRN PO INSOMNIA; Start 08/06/18 at 17:00 Venlafaxine HCl (Effexor Xr) 300 mg DAILY PO Last administered on 08/08/18at 08:22; Start 08/07/18 at 09:00 Venlafaxine HCl (Effexor) 225 mg DAILY PO ; Start 08/07/18 at 09:00; Status Cancel Allergies Coded Allergies: No Known Allergies (Unverified , 10/12/16) DAQUAN GORDILLO MD Aug 08, 2018 11:30
--- NOTE | 2018-08-08 13:08 | ECGEPIP ---
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
--- NOTE | 2018-08-08 14:25 | MHDSPDOC ---
[facility] Discharge Summary Discharge Summary DATE OF ADMISSION: Aug 06, 2018 at 16:56 DATE OF DISCHARGE: Aug 08, 2018 DISCHARGE DIAGNOSES: 1. Major Depressive D/O recurrent severe w/o psychosis 2. Generalized anxiety disorder REASON FOR ADMISSION: Patient is a 43-year-old male, who according to ED report: "PT states he had SI with plan and is pursuing ECT PT states that he is in treatment with Dr. Wilson via [facility] and that they have discussed ECT. PT has had depression for most of his life and he will cycle with increased symptoms to inpatient with med changes and then he feels better until his next cycle and he is frustrated. For the past several days PT has been experiencing severe anxiety that is borderline panic and depression with a thought to hang himself. Per TC to Dr. Wilson he has discussed a direct admission to [facility] for ECT but as of yesterday they did not have a bed available. One plan would be for PT to be admitted to [facility] and then transferred to [facility]. Another plan would be for PT to be see in the ED at [facility] for possible admissi on that way. They looked into outpatient ECT via [facility] or [facility] but PT is preferring inpatient. Dr. Wilson states that his nurse is assisting with them plan and is a reference point for PT. PT is scheduled to see psychologist in the morning. Per PT yesterday he was at his appointment and he envisioned himself taking his belt off and hanging himself. He feels he is "borderline" in terms of if he would harm himself or not and he is agreeable to being admitted tonight. PT cannot CFS with confidence. * This rfp writer spoke with Dr. Wilson who told me about Dr. Hobbs who is in charge of the ECT Inpatient program at [facility]. Dr. Wilson says he has already spoken to him and Dr. Hobbs would be willing to treat the patient but this one needs to be transferred. Discharge Planners will inquire about this with [facility] to see if we can work things out and transfer the patient directly over there. Dr. wilson also mentioned Dr. Villegas who is in charge of the Outpatient treatment program for ECT and apparently is already using ketamine for depression. However Inpatient would be better for the patient. CONSULTANTS INVOLVED: ELEN Weinstein (for Inpatient ECT) TREATMENT AND PROGRESS ON THE UNIT : Víctor has been pleasant and cooperative as he always has on previous admissions. He is insightful about his illness (but not so much about his cognitive distortions) and is aware that he needs other kind of treatment because he has been on multiple antidepressants since this rfp writer saw him at the ED in 2017, when he complained of extreme anxiety/depress ion and panic attacks. This time, his presentation is very similar to previous ones. His main stressor is his job and his family. 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 He worries about his cases (but he is aware that he shouldn't be because his caseload is not that big) and he always worries about his family because he thinks that if he is not able to work (due to his depression), he won't be able to support his family. He always has endorsed guilty thoughts, he feels as if he has failed in his professional and family life and when I initially met with him, 2 years ago, he said he had felt very guilty because he had a difficult period during his adolescence when he was rebellious against his parents. He has never endorsed psychotic delusions, has never endorsed auditory/visual/tactile hallucinations. He has a genetic predisposition for depr ession and one of his cousins committed suicide. this time he presents with suicidal ideation, he has envisioned himself using his belt to hang himself. He says he is a t his worse during the mornings, many times when he opens his eyes, when he wakes up, he thinks he doesn't want to keep on living. he presents with anhedonia, poor attention and concentration, hypersomnia, erratic appetite, low energy levels and suicidal thoughts. This man struggles constantly with depression and thoughts of suicide, he struggles with anxiety. Sometimes he can't stop moving in his chair (he constantly moves his leg) He has tried different medications, the most recent ones, Paxil (has been discontinued). He was started on Venlafaxine on March 2018 and he is receiving 300 mgs at this time. he also was started on Abilify and now he is on 12.5 mgs (10 mgs PO QHS) and 2.5 mgs PO QAM but on his admission he was on 10 mgs. TW thought of increasing the medication to 12.5 mgs. HOSPITAL COURSE: As above DISCHARGE ASSESSMENT: The patient has suicidal thoughts (active), he is not homicidal and he is not psychotic. He is michael for safety, he doesn't want to hurt himself, he is asking for help, he wants to go for ECT, he is agreeable. MENTAL STATUS EXAMINATION ON DISCHARGE: General Appearance: well groomed, appears stated age, hospital clothes, good hygiene Build: average Demeanor: cooperative, pleasant, restless and very fidgety Eye Contact: average Activity: anxious/depressed Behavior: cooperative, preoccupied, restless and fidgety Speech: clear, spontaneous, normal volume, reg/rate,rhythm,volume Mood: very anxious/very depressed (anxiety is 9.5/10 and depression is 9.5/10) Mood depressed/anxious Affect: constricted, congruent with mood Thought Process: logical/linear Thought Content (Delusions): denies AV hallucinations and denies thought delusions. Thought Content (Other): guilty thoughts, depressive thoughts, anxious thoughts. Had SI, has considered hanging himself with his belt and he has envisioned himself hanging from the roof. the last time was this morning after he woke up. Denies HI Thought Content (Aggressive): none reported Perception (Hallucinations): none reported Perception (Other): none reported Cognition (Impairment of): none reported Cognition(Intelligence Est.): average Oriented: Awake, Alert, Oriented times three Insight: limited (due to his cognitive distortions) Judgment: fair (he is asking for an ECT-he wants to overcome the illness) Psychosis: Denies Diagnoses 1. 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, Inpatient ECT Unit, to Dr. Hobbs. The amount of time spent in the coordination of care for this patient was approximately 30 minutes. Vital Signs/I&Os Vital Signs Date Time Temp Pulse Resp B/P (MAP) Pulse Ox O2 Delivery O2 Flow Rate FiO2 08/08/18 07:00 98.8 95 14 128/76 (93) 08/06/18 19:25 98 08/06/18 14:19 Room Air Medications Scheduled Aripiprazole (Abilify) 10 Mg Tablet, 10 MG PO DAILY for mood, #7 Aripiprazole (Abilify) 5 Mg Tablet, 2.5 MG PO QHS for mood, #4 Gabapentin (Gabapentin) 300 Mg Capsule, 300 MG PO TID, (Reported) Venlafaxine HCl (Venlafaxine HCl ER) 150 Mg Cap.er.24h, 300 MG PO DAILY, (Reported) DOSE WAS INCREASED FROM 225MG TO 300MG ON 07/15/18 Allergies Coded Allergies: No Known Allergies (Unverified , 10/12/16) DAQUAN GORDILLO MD Aug 08, 2018 14:19
[2018-08-08] MEDS ORDERED: ABIL1TAB11 PO (15:48)
[2018-08-08] MEDS ORDERED: ABIL10TA9 PO (15:48)
[2018-08-08 18:05] VITALS: BP 118/67
[2018-08-08] MEDS: traZODone 50 MG TAB PO PRN (21:02)
[2018-08-09 07:05] VITALS: BP 133/86
[2018-08-09] MEDS: GABAPENTIN 300 MG CAP PO SCH ×3 (08:57→20:38)
[2018-08-09] MEDS: VENLAFAXINE **XR** 75MG CAPSULE PO SCH (08:57)
[2018-08-09] MEDS: ARIPiprazole 10 MG TAB PO SCH (08:57)
[2018-08-09 18:00] VITALS: BP 135/89
[2018-08-09] MEDS: traZODone 50 MG TAB PO PRN (21:44)
[2018-08-10 06:26] VITALS: BP 132/71
[2018-08-10] MEDS: VENLAFAXINE **XR** 75MG CAPSULE PO SCH (08:26)
[2018-08-10] MEDS: ARIPiprazole 10 MG TAB PO SCH (08:26)
[2018-08-10] MEDS: GABAPENTIN 300 MG CAP PO SCH ×3 (08:27→21:01)
[2018-08-10 18:00] VITALS: BP 125/78
--- NOTE | 2018-08-10 21:34 | MHIPN ---
DATE: 08/09/2018 CHIEF COMPLAINT: Feels depressed. SUBJECTIVE: Seen for followup. The patient is seen in the presence of staff. Feels depressed, despondent, hopeless. Has suicidal thoughts but denies any plans. The chart is reviewed, and the events of the last few days are also reviewed. The patient is being sent to [facility] in [place] to the inpatient unit for ECT treatment. Was due to go yesterday. I understand there has been a hitch administratively listed here. He has continued to struggle (cut off) to go ahead and kill himself, but acknowledges having thoughts of doing so, including hanging himself with his belt in the office. 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 Is concerned about his career as well. Says is in touch with his father, who also has these concerns about his career. MENTAL STATUS EXAMINATION: He is neat. He is cooperative but possibly a bit guarded. There is no agitation. No psychomotor retardation. He is coherent. Mood is depressed. Affect is restricted, congruent with mood. Has suicidal thoughts. Vague on firm plans. No homicidal ideas or intents. No evidence of any psychosis. Cognition is grossly intact. His judgment is quite questionable. Insight (cut off). ASSESSMENT: 1. Major depressive disorder, recurrent, severe. 2. Generalized anxiety disorder. Severely depressed. This impacts his function considerably, including his work. 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 I have suggested that he consider transferring his clients to other colleagues, given the nature of his work, his current situation, and the intensity of the depression. Continue current observations. Continue current medication regimen as well. We will continue to arrange for transfer elsewhere for ECT. Safety plan was discussed. VITAL SIGNS: Blood pressure 115/86, pulse 76, temperature 98.3. We met for 25 minutes.
[2018-08-11 06:30] VITALS: BP 120/66
[2018-08-11] MEDS: VENLAFAXINE **XR** 75MG CAPSULE PO SCH (08:38)
[2018-08-11] MEDS: ARIPiprazole 10 MG TAB PO SCH (08:38)
[2018-08-11] MEDS: GABAPENTIN 300 MG CAP PO SCH ×2 (08:38→15:27)
--- NOTE | 2018-08-11 09:31 | MHIPN ---
DATE: 08/10/2018 CHIEF COMPLAINT: He is depressed. SUBJECTIVE: Seen for followup. Indicates has felt that it has been a "dull" time, says has not had much to do. Feels depressed. Says has had suicidal thoughts today, but no firm plans as such. Says is hoping he is transferred and then discharged from [facility] by the end of the week, says is concerned about work, and that he was able to find out there were no current emergencies, but he hopes he is back at work by the end of the week. MENTAL STATUS EXAMINATION: Neat. Cooperative. Appears mildly anxious. No agitation. No psychomotor retardation. Affect is a bit broader than yesterday. He is coherent. Has suicidal thoughts, no firm plans. No evidence of any psychosis. Cognition grossly intact. Judgment and insight remain compromised. ASSESSMENT: Major depressive disorder, recurrent, severe, without psychotic features. Generalized anxiety disorder. Remains depressed, considerably so, which also clouds his judgment, including matters related to work. 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 PLAN: He is to continue current care, and observations, we will monitor him. He is being made aware of ECT may prompt more information on his part, but I would suggest keeping a realistic perspective, but a hopeful one. The type of ECT and its benefits as well as drawbacks will be discussed with the inpatient psychiatry he may see at [facility]. We also discussed how his mood clouds his judgment, including possibly related to work. Anticipated anxiety is gently pointed out. Will continue with current observations. He will be seeing Dr. Figueroa as well as the rest of the treatment team tomorrow, to further pursue the transfer to [facility]. VITAL SIGNS: Blood pressure 132/71. Pulse 68. Temperature 99.3.
--- NOTE | 2018-08-11 13:11 | MHIPNPDOC ---
[facility] Progress Note Progress Note DATE OF SERVICE: 08/11/18 HISTORY: HISTORY OF PRESENT ILLNESS: Patient is a 43-year-old male, who according to ED report: "PT states he had SI with plan and is pursuing ECT PT states that he is in treatment with Dr. Wilson via [facility] and that they have discussed ECT. PT has had depression for most of his life and he will cycle with increased symptoms to inpatient with med changes and then he feels better until his next cycle and he is frusterated. For the past several days PT has been experiencing severe anxiety that is borderline panic and depression with a thought to hang himself. Per TC to Dr. Wilson he has discussed a direct admission to [facility] for ECT but as of yesterday they did not have a bed available. One plan would be for PT to be admitted to [facility] and then transferred to [facility]. Another plan would be for PT to be see in the ED at [facility] for possible admission that way. They looked into outpatient ECT via [facility] or [facility] but PT is preferring inpatient. Dr. Wilson states that his nurse is assisting with them plan and is a reference point for PT. PT is scheduled to see psychologist in the morning. Per PT yesterday he was at his appointment and he envisioned himself taking his belt off and hanging himself. He feels he is "borderline" in terms of if he would harm himself or not and he is agreeable to being admitted tonight. PT cannot CFS with confidence. * This board writer spoke with Dr. Wilson who told me about Dr. Hobbs who is in charge of the ECT Inpatient program at [facility]. Dr. Wilson says he has already spoken to him and Dr. Hobbs would be willing to treat the patient but this one needs to be transferred. Discharge Planners will inquire about this with [facility] to see if we can work things out and transfer the patient directly over there. Dr. wilson also mentioned Dr. Villegas who is in charge of the Outpatient treatment program for ECT and apparently is already using ketamine for depression. However Inpatient would be better for the patient. VITAL SIGNS: See below. NEW TEST RESULTS: See below. CURRENT MEDICATIONS: See below. MENTAL STATUS EXAMINATION: General Appearance: well groomed, appears stated age, hospital clothes, good hygiene Build: average Demeanor: cooperative, pleasant, restless and very fidgety Eye Contact: average Activity: anxious/depressed Behavior: cooperative, preoccupied, restless and fidgety Speech: clear, spontaneous, normal volume, reg/rate,rhythm,volume Mood: very anxious/very depressed. His anxiety and depression are still8-9/10 Mood depressed/anxious Affect: constricted, congruent with mood Thought Process: logical/linear Thought Content (Delusions): denies AV hallucinations and denies thought delusions. Thought Content (Other): guilty thoughts, depressive thoughts, anxious thoughts. Has fleeting suicidal thoughts in the back of his mind almost all day but they are worse in the morning. He denies HI, denies thought delusions, denies AV hallucinations. Thought Content (Aggressive): none reported Perception (Hallucinations): none reported Perception (Other): none reported Cognition (Impairment of): none reported Cognition(Intelligence Est.): average Oriented: Awake, Alert, Oriented times three Insight: limited (due to his cognitive distortions) Judgment: fair (he is asking for an ECT-he wants to overcome the illness) Psychosis: Denies Diagnoses 1. 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 He said he was feeling a little bit better this morning, he said he still had suicidal thoughts in the back of his mind, as usual he had felt worse in the morning. the patient was not transferred to [facility] on Saturday because the Insurance had not come up with an answer as if they would approve or not his transfer. Apparently, on Saturday they called over the weekend but staff was not here to take care of that (staff works Saturday-Saturday to take care of these issues, for that reason we don't discharge people over the weekend). this wirter wrote a discharge summary and signed the orders for the Ambulance who were ready to take the patient but he wasn't, for the same reason. MANAGEMENT PLAN: ECG, waiting for insurance to give us an answer 9approve or not approve of transfer) TIME SPENT: 15 minutes. Vital Signs Vital Signs Date Time Temp Pulse Resp B/P (MAP) Pulse Ox O2 Delivery O2 Flow Rate FiO2 08/11/18 06:30 98.4 77 14 120/66 (84) 08/06/18 19:25 98 08/06/18 14:19 Room Air Current Medications Current Medications Acetaminophen (Tylenol Tab) 650 mg Q6HP PRN PO HEADACHE or DISCOMFORT; Start 08/06/18 at 17:00 Al Hydrox/Mg Hydrox/Simethicone (Mylanta) 30 ml Q4HP PRN PO HEARTBURN/INDIGESTION; Start 08/06/18 at 17:00 Aripiprazole (AbiLIFY) 2.5 mg QHS PO Last administered on 08/10/18at 21:01; Start 08/07/18 at 21:00 Aripiprazole (AbiLIFY) 10 mg DAILY PO Last administered on 08/11/18at 08:38; Start 08/07/18 at 09:00 Gabapentin (Neurontin) 300 mg TID PO Last administered on 08/11/18 08:38; Start 08/06/18 at 21:00 Home Med (Med Rec Complete!) ASDIRECTED XX ; Start 08/06/18 at 17:45; Stop 08/06/18 at 17:45; Status DC Magnesium Hydroxide (Milk Of Magnesia) 30 ml DAILYPRN PRN PO CONSTIPATION; Start 08/06/18 at 17:00 Nicotine (Nicoderm Cq 21mg) 1 patch DAILY TD ; Start 08/07/18 at 09:00; Stop 08/08/18 at 08:27; Status DC Trazodone HCl (Desyrel) 50 mg QHSP PRN PO INSOMNIA Last administered on 08/09/18at 21:44; Start 08/06/18 at 17:00 Venlafaxine HCl (Effexor Xr) 300 mg DAILY PO Last administered on 08/11/18at 08:38; Start 08/07/18 at 09:00 Venlafaxine HCl (Effexor) 225 mg DAILY PO ; Start 08/07/18 at 09:00; Status Cancel Allergies Coded Allergies: No Known Allergies (Unverified , 10/12/16) DAQUAN GORDILLO MD Aug 11, 2018 13:11
== END 2018-08-11 17:15 | DRG 885 ==
LOC: M ED 14:19 → M ED INP 16:56 → M PSY 19:14
PROVIDERS: ADMIT Psychiatry & Neurology Psychiatry; ATTEND Psychiatry & Neurology Psychiatry
DX: F33.2 Major depressive disorder, recurrent severe without psychotic features (principal); F41.1 Generalized anxiety disorder; Z81.8 Family history of other mental and behavioral disorders; Z62.811 Personal history of psychological abuse in childhood; Z79.899 Other long term (current) drug therapy; Z56.3 Stressful work schedule

== ENCOUNTER 2020-01-07 09:55 | Inpatient (IN) | payer OTHER ==
[~2020-01-07] VITALS: Ht 182.9 cm; Wt 103.7 kg
[~2020-01-07 09:55] MED LIST changes: +ABIL10TA9 PO; -DIPH25CA PO; +DIPH25CA32 PO; +HYDR1TAB33 PO; -HYDRO50TAB PO; -PARO15TA; +PARO30TA4; -SERT-155 PO; +SERT50TA29 PO; -TRAZ-160 PO; +TRAZ-252 PO; +TRAZ1TAB10 PO; -TRAZO50TA PO; +VENL150C43 PO
[2020-01-07 10:27] LABS: HEMATOCRIT 44.2 % (42.0-52.0); HEMOGLOBIN 15.3 g/dl (13.5-17.5); MEAN CORPUSCULAR HEMOGLOBIN 31.2 pg (27.0-33.0); MEAN CORPUSCULAR HGB CONC 34.6 g/dl (32.0-36.5); MEAN CORPUSCULAR VOLUME 90.2 fl (80.0-96.0); PLATELET COUNT, AUTOMATED 263 10^3/uL (150-450); WHITE BLOOD COUNT 6.8 10^3/uL (4.0-10.0)
[2020-01-07 11:12] LABS: ACETAMINOPHEN LEVEL < 2.0 UG/ML (10.0-30.0); ALBUMIN 4.3 GM/DL (3.2-5.2); ALT/SGPT 79 U/L (12-78); BILIRUBIN,DIRECT 0.2 MG/DL (0.0-0.2); BILIRUBIN,TOTAL 0.5 MG/DL (0.2-1.0); BLOOD UREA NITROGEN 11 MG/DL (7-18); CALCIUM LEVEL 9.6 MG/DL (8.5-10.1); CARBON DIOXIDE LEVEL 29 MEQ/L (21-32); CHLORIDE LEVEL 105 MEQ/L (98-107); CREATININE FOR GFR 0.94 MG/DL (0.70-1.30); ETHYL ALCOHOL (ETHANOL) < 0.003 % (0.000-0.010); GLOMERULAR FILTRATION RATE > 60.0 (>60); GLUCOSE, FASTING 106 MG/DL (70-100); POTASSIUM SERUM 4.1 MEQ/L (3.5-5.1); SALICYLATE LEVEL < 1.7 MG/DL (5.0-30.0); SODIUM LEVEL 138 MEQ/L (136-145); TOTAL PROTEIN 7.6 GM/DL (6.4-8.2)
[2020-01-07] MEDS ORDERED: ARIP1TAB PO (15:01)
[2020-01-07 17:54] LABS: AMPHETAMINES LEVEL URINE NEGATIVE (NEGATIVE); BARBITURATES URINE NEGATIVE (NEGATIVE); BENZODIAZEPINES URINE NEGATIVE (NEGATIVE); CANNABINOIDS URINE NEGATIVE (NEGATIVE); COCAINE METABOLITE URINE NEGATIVE (NEGATIVE); METHADONE URINE NEGATIVE (NEGATIVE); OPIATES URINE NEGATIVE (NEGATIVE); PHENCYCLIDINE URINE NEGATIVE (NEGATIVE)
[2020-01-07] MEDS ORDERED: MAALOX 30 ML SUSP *UDC PO PRN (18:00)
[2020-01-07] MEDS ORDERED: MOM 30ML SUSPENSION UDC PO PRN (18:00)
[2020-01-07] MEDS ORDERED: LORazepam 1 MG TAB PO PRN (18:00)
[2020-01-07] MEDS ORDERED: traZODone 50 MG TAB PO PRN (18:00)
[2020-01-07] MEDS ORDERED: ACETAMINOPHEN TAB 650MG DOSE (2X325MG) PO PRN (18:00)
[2020-01-07 22:27] VITALS: BP 131/98
[2020-01-08 06:56] VITALS: BP 133/58
[2020-01-08] MEDS ORDERED: VENLAFAXINE **XR** 75MG CAPSULE PO SCH (09:00)
[2020-01-08] MEDS: ARIPiprazole 10 MG TAB PO SCH (10:04)
--- NOTE | 2020-01-08 14:49 | MHHPEPDOC ---
General Date Of Admission: Jan 07, 2020 Legal Status: 9.39 Chief Complaint Patient is a 44 year old, , Self-Employed, Domiciled, Male who was brought to [facility] by EMS after he reported to 911 that he aborted his suicide attempt by carbon monoxide poisoning. 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 He believes that these mistakes are irreversible and that it would be financially disastrous for his family. Patient had waited for his to go to work and his daughter to get on the bus. He then put the car in the garage and had it running for an hour. After one hour, he aborted the attempt and dialed 911. Psychiatric Review of Systems Depression (2 or more weeks): depressed mood, anhedonia, insomnia/hypersomnia, feelings of excess/guilt, feelings of worthlesness, difficulty concentrating, psychomotor changes (Had an aborted suicide attempt by carbon monoxide poisoning), suicidal thoughts Sophia (4 or more days of): denies Psychosis: denies PTSD: denies Anxiety: gen/non-specific anxiety, situational anxiety, stressor related anxiety, other (Reports that he had anxiety in HIgh school and College, symptoms of pacing, agitation, racing thoughts, nervousness and worried) Anxiety/ 6 months or more of: restlessness, keyed up, difficulty concentrating, irritability, muscle tension, sleep disturbance Past Psychiatric History Previous Psychiatric Diagnosis: Depression and Generalized Anxiety Previous Psychiatric Admissions: 6 admissions 08/06/18-08/11/18 03/27/18-/03/09/11/06-01/15/18 12/18/17-/09/0610/09/17-10/14/17 10/12/16-10/17/16 Suicide Attempts: No prior suicide gestures or attempts, only ideations Psychiatric Follow-up: Sees Dr. Lal at [facility], has been seeing him for 2 years Psychiatric medications: Effexor 150 mg daily, Abilify 10 mg Has been trialed on Paxil, Seroquel and possibly Luvox in the past. History of Electroconvulsive Therapy. Past Medical History Medical Problems No reports of any acute or chronic medication conditions No history of surgery. Had an endoscopy in 07/2012 No medications No known drugs allergies Head Injury: No Seizures: No Hospitalizations: Yes Surgeries: No Family Medical/Psychiatric HX Medical Problems States both sides have history of Melanoma Psychiatric Disorders: No Addiction: Yes (Paternal Uncle and Grandfather with ETOH history) Suicide Attemps/Completions: Yes (Cousin completed suicide) Addiction History alcohol (increased drinking this past week - states drinking 2-3 large glasses nightly, but has not had any abuse issues in the past) Social History Childhood: Born at [facility] to both parents, has a younger sister. Grew up in [place], [place]. Has a younger sister. 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 Social Support: 1) , 2) Dad, 3) Uncle Stressors 1) Work, 2) financial Legal: None Marital: x 10 years Mental Status Examination General Appearance: well groomed, appears stated age, hospital scubs/clothing Build: average Demeanor: very figety Eye Contact: fair Activity: anxious Behavior: cooperative Speech: clear, reg/rate,rhythm,volume Mood: depressed, anxious Affect: flat, anxious Thought Process: logical/linear Thought Content (Other): obsessional, coherent Thought Content (Aggressive): none reported Perception (Hallucinations): none reported Perception (Other): none reported Cognition (Impairment of): none reported Cognition(Intelligence Est.): above average Oriented: Awake, Alert, Oriented times three Insight: fair Judgment: Fair Psychosis: Denies Diagnoses Major Depressive Disorder, Recurrent, Moderate Generalized Anxiety Disorder A-FIB/CHADSVASC A-FIB History Current/History of A-Fib/PAF?: No Current PO Anticoag Therapy: No Age/Risk Factor Scoring CHADSVASC: CHADSVASC Response (Comments) Value Age Risk Factor Age < 65 years old 0 Gender Risk Factor Male 0 Hx of CHF No 0 Hx of HTN No 0 Hx of Stroke/TIA/or VTE No 0 Hx of Diabetes No 0 Hx of Vascular Disease No 0 Total 0 Treatment Treatment ordered: NONE Assessment Patient presents with severe anxiety and depression. He appears to be ruminative about his mistakes at work that he cannot fix and states that he will lose his law practice because of this issues that he feels he cannot fix. He is observed pacing the floor in the interview, is moderate fidgety and restless. He reports being very nervous about his family's finances. Admit to my service. Will increase Effexor XR to 225 mg daily Trazodone increased to 100 mg due to poor sleep hygiene Buspar 5 mg twice daily Initial Treatment Plan 1. Patient was admitted on a [9.39] status. 2. Complete history was obtained. 3. With patients permission, family will be contacted and database will be expanded. 4. Patients medication regimen will be reviewed and changed accordingly. 5. Patient will be provided with protected environment. 6. Patient will be treated with individual, group, and milieu therapies. 7. Patient will receive supportive psych-education. 8. Discharge planning will commence immediately. 9. Outpatient follow-up treatment will be strongly recommended. 10. The initial treatment plan will focus initially on: * Depression. * Risk for suicide. ESTIMATED LENGTH OF STAY: 5-10 DAYS. TIME SPENT COUNSELING AND COORDINATING INITIAL CARE: 50 minutes. Vital Signs Vital Signs Date Time Temp Pulse Resp B/P (MAP) Pulse Ox O2 Delivery O2 Flow Rate FiO2 01/08/20 09:36 Room Air 01/08/20 06:56 98.1 81 16 133/58 (83) 100 Laboratory Data 24H Labs Laboratory Tests 2 01/07/20 17:22: Urine Opiates Screen NEGATIVE, Urine Methadone Screen NEGATIVE, Urine Barbiturates Screen NEGATIVE, Urine Phencyclidine Screen NEGATIVE, Urine Amphetamines Screen NEGATIVE, Urine Benzodiazepines Screen NEGATIVE, Urine Cocaine Metabolite Screen NEGATIVE, Urine Cannabinoids Screen NEGATIVE Medications Scheduled Aripiprazole (Aripiprazole) 10 Mg Tablet, 10 MG PO DAILY, (Reported) Venlafaxine HCl (Venlafaxine HCl ER) 150 Mg Cap.er.24h, 150 MG PO DAILY, (Reported) Allergies Coded Allergies: No Known Allergies (Unverified , 01/07/20) ZAK RIVERS NP Jan 08, 2020 14:49
[2020-01-08 16:15] VITALS: BP 136/81
--- NOTE | 2020-01-08 17:54 | HPEPDOC ---
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 He was particularly distressed this morning, waited for family to leave and he attempted suicide by sitting in his car parked in the garage with the engine running for an hour. He denies active SI. He denies dizziness, lightheadedness, chest pain, fevers, chills, vision changes, n/v/d. PAST MEDICAL HISTORY: Depression PAST SURGICAL HISTORY: patient denies having surgery SOCIAL HISTORY: patient denies smoking occasional etoh use FAMILY HISTORY: mother, father hx of melanoma ALLERGIES: Please see below. REVIEW OF SYSTEMS: CONSTITUTIONAL: denies fatigue, malaise. HEENT: denies vision changes. CARDIOVASCULAR: denies chest pain, palpitations. RESPIRATORY: denies shortness of breath, wheezing, cough. GASTROINTESTINAL: denies abdo pain, n/v/d/c. GENITOURINARY: denies dysuria. SKIN: denies rashes, bruising. MUSCULOSKELETAL: denies joint pain. NEUROLOGICAL: denies focal weakness or numbness, denies dizziness. PSYCHIATRIC: denies SI at this minute, admitted for SI/attempt. HOME MEDICATIONS: Please see below. PHYSICAL EXAMINATION: . GENERAL APPEARANCE: calm, comfortable. HEENT: PERRLA, EOMI. CARDIOVASCULAR: RRR, normal S1, S2. LUNGS: lungs CTAB, no wheeze, no rales. ABDOMEN: soft, non tender, no masses. MUSCULOSKELETAL: normal ROM, no joint deformity. EXTREMITIES: no edema. NEUROLOGICAL: moving all 4 extremities, no nystagmus, no gait instability. PSYCHIATRIC: calm, cooperative, denies active SI. LABORATORY DATA: See below. MICROBIOLOGY: Please see below. ASSESSMENT:44 yo M with a hx of anxiety and depression, admitted for attempted suicide by carbon monoxide poisoning. Very worried about his job, finances. PLAN: Carbon Monoxide exposure - patient states was in a closed garage with car engine running for about 1 hour -carboxyhemoglobin level on arrival to ED 1.6% -patient is alert, oriented and conversational - given benign exam, mild elevation of CO, no further medical intervention is warranted at this time JOY Major Depression - per psychiatry - takes effexor, trazodone, buspar DVT ppx: early ambulation Thank you for your consult. Please re-consult as needed. Vital Signs Vital Signs Date Time Temp Pulse Resp B/P (MAP) Pulse Ox O2 Delivery O2 Flow Rate FiO2 01/08/20 16:15 98.4 96 18 136/81 (99) 01/08/20 09:36 Room Air 01/08/20 06:56 100 Home Medications Scheduled Aripiprazole (Aripiprazole) 10 Mg Tablet, 10 MG PO DAILY Venlafaxine HCl (Venlafaxine HCl ER) 150 Mg Cap.er.24h, 150 MG PO DAILY Allergies Coded Allergies: No Known Allergies (Unverified , 01/07/20) A-FIB/CHADSVASC A-FIB History Current/History of A-Fib/PAF?: No Current PO Anticoag Therapy: No ALLA CAMPOS MD Jan 08, 2020 17:54
[2020-01-08] MEDS: traZODone 100 MG TAB PO SCH (20:20)
[2020-01-08] MEDS: busPIRone 5 MG TAB PO SCH (20:20)
[2020-01-09 06:27] VITALS: BP 118/72
[2020-01-09] MEDS: ARIPiprazole 10 MG TAB PO SCH (09:13)
[2020-01-09] MEDS: busPIRone 5 MG TAB PO SCH ×2 (09:13→20:27)
[2020-01-09] MEDS: VENLAFAXINE **XR** 75MG CAPSULE PO SCH (09:13)
--- NOTE | 2020-01-09 10:57 | MHIPNPDOC ---
[facility] Progress Note Progress Note DATE OF SERVICE: 01/09/20 Subjective HPI: Víctor presents today for concerns regarding his mental state. He has some suicidal thoughts, and is anxious about the situations that have brought him in. Objective Appearance: Appears to be stated age. Well nourished. Well groomed. Affect: Constricted. Mood: Anxious. Speech: Normal rate. Spontaneous and Fluid. Normal volume. Cognition: Alert, Attentive, and Oriented to person, place, time. Thought Form: Linear and goal directed. Thought Content: Fleeting suicidal thoughts. No signs of internal preoccupation. Judgement: Intact as evidenced by decision making in the recent past. Insight: Good insight into symptoms and treatment options. Assessment F33.9 Major depressive disorder, recurrent, unspecified F41.9 Anxiety disorder, unspecified Plan Continue current medications- Effexor 225 mg daily, Abilify and Buspar continued at current dose. Follow-up tomorrow. Vital Signs Vital Signs Date Time Temp Pulse Resp B/P (MAP) Pulse Ox O2 Delivery O2 Flow Rate FiO2 01/09/20 06:27 96.6 64 18 118/72 (87) Room Air 01/08/20 06:56 100 Current Medications Current Medications Medications (Trade) Dose Ordered Sig/Eva Route PRN Reason Start Time Stop Time Status Last Admin Dose Admin Acetaminophen (Tylenol Tab) 650 mg Q6HP PRN PO HEADACHE or DISCOMFORT 01/07/20 18:00 Al Hydrox/Mg Hydrox/Simethicone (Mylanta) 30 ml Q4HP PRN PO HEARTBURN/INDIGESTION 01/07/20 18:00 Aripiprazole (AbiLIFY) 10 mg DAILY PO 01/08/20 09:00 01/09/20 09:13 Buspirone HCl (Buspar) 5 mg BID PO 01/08/20 21:00 01/09/20 09:13 Home Med (Med Rec Complete!) ASDIRECTED XX 01/07/20 15:15 01/07/20 15:02 DC Lorazepam (Ativan) 1 mg BIDP PRN PO ANXIETY/AGITATION 01/07/20 18:00 Magnesium Hydroxide (Milk Of Magnesia) 30 ml DAILYPRN PRN PO CONSTIPATION 01/07/20 18:00 Trazodone HCl (Desyrel) 50 mg QHSP PRN PO INSOMNIA 01/07/20 18:00 01/08/20 14:25 DC Trazodone HCl (Desyrel) 100 mg QHS PO 01/08/20 21:00 01/08/20 20:20 Venlafaxine HCl (Effexor Xr) 150 mg DAILY PO 01/08/20 09:00 01/08/20 14:25 DC 01/08/20 10:03 Venlafaxine HCl (Effexor Xr) 225 mg DAILY PO 01/09/20 09:00 01/09/20 09:13 Allergies Coded Allergies: No Known Allergies (Unverified , 01/07/20) SUZIE HOLT DO Jan 09, 2020 10:57
--- NOTE | 2020-01-09 11:33 | ECGEPIP ---
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
[2020-01-09 16:13] VITALS: BP 132/84
[2020-01-09] MEDS: traZODone 100 MG TAB PO SCH (20:27)
[2020-01-10 06:23] VITALS: BP 129/87
[2020-01-10] MEDS: busPIRone 5 MG TAB PO SCH ×2 (08:58→21:26)
[2020-01-10] MEDS: VENLAFAXINE **XR** 75MG CAPSULE PO SCH (08:59)
[2020-01-10] MEDS: ARIPiprazole 10 MG TAB PO SCH (08:59)
--- NOTE | 2020-01-10 12:15 | MHIPNPDOC ---
[facility] Progress Note Progress Note DATE OF SERVICE: 01/10/20 Subjective HPI: Víctor presents today for a follow-up. Patient states he feels bored. He states the suicidal thoughts have subsided and currently is not experiencing any thoughts. 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 Objective Behavior: Engaged. Cooperative with good eye contact. Pleasant. Mood: Less dysthymic. Constricted. Cognition: grossly intact. Thought Form: More linear and logical. Thought Content: Less suicidal or homicidal ideation. Judgement: Improved. Insight: Improved. Assessment F32.9 Major depressive disorder, single episode, unspecified Plan Continue current medication regiment Vital Signs Vital Signs Date Time Temp Pulse Resp B/P (MAP) Pulse Ox O2 Delivery O2 Flow Rate FiO2 01/10/20 06:23 97.0 85 18 129/87 (101) 01/09/20 06:27 Room Air 01/08/20 06:56 100 Current Medications Current Medications Medications (Trade) Dose Ordered Sig/Eva Route PRN Reason Start Time Stop Time Status Last Admin Dose Admin Acetaminophen (Tylenol Tab) 650 mg Q6HP PRN PO HEADACHE or DISCOMFORT 01/07/20 18:00 Al Hydrox/Mg Hydrox/Simethicone (Mylanta) 30 ml Q4HP PRN PO HEARTBURN/INDIGESTION 01/07/20 18:00 Aripiprazole (AbiLIFY) 10 mg DAILY PO 01/08/20 09:00 01/10/20 08:59 Buspirone HCl (Buspar) 5 mg BID PO 01/08/20 21:00 01/10/20 08:58 Home Med (Med Rec Complete!) ASDIRECTED XX 01/07/20 15:15 01/07/20 15:02 DC Lorazepam (Ativan) 1 mg BIDP PRN PO ANXIETY/AGITATION 01/07/20 18:00 Magnesium Hydroxide (Milk Of Magnesia) 30 ml DAILYPRN PRN PO CONSTIPATION 01/07/20 18:00 Trazodone HCl (Desyrel) 50 mg QHSP PRN PO INSOMNIA 01/07/20 18:00 01/08/20 14:25 DC Trazodone HCl (Desyrel) 100 mg QHS PO 01/08/20 21:00 01/09/20 20:27 Venlafaxine HCl (Effexor Xr) 150 mg DAILY PO 01/08/20 09:00 01/08/20 14:25 DC 01/08/20 10:03 Venlafaxine HCl (Effexor Xr) 225 mg DAILY PO 01/09/20 09:00 01/10/20 08:59 Allergies Coded Allergies: No Known Allergies (Unverified , 01/07/20) SUZIE HOLT DO Jan 10, 2020 12:15
[2020-01-10 16:20] VITALS: BP 141/86
[2020-01-10] MEDS: traZODone 100 MG TAB PO SCH (21:26)
[2020-01-11 06:14] VITALS: BP 142/88
[2020-01-11] MEDS: ARIPiprazole 10 MG TAB PO SCH (08:37)
[2020-01-11] MEDS: busPIRone 5 MG TAB PO SCH (08:37)
[2020-01-11] MEDS: VENLAFAXINE **XR** 75MG CAPSULE PO SCH (08:38)
[2020-01-11 17:46] VITALS: BP 146/90
--- NOTE | 2020-01-11 18:30 | MHIPNPDOC ---
[facility] Progress Note Progress Note DATE OF SERVICE: 01/11/20 HISTORY: Patient is a 44 year old, , Self-Employed, Domiciled, Male who was brought to [facility] by EMS after he reported to 911 that he aborted his suicide attempt by carbon monoxide poisoning. 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 He believes that these mistakes are irreversible and that it would be financially disastrous for his family. Patient had waited for his to go to work and his daughter to get on the bus. He then put the car in the garage and had it running for an hour. After one hour, he aborted the attempt and dialed 911. . VITAL SIGNS: See below. NEW TEST RESULTS: . CURRENT MEDICATIONS: See below. MENTAL STATUS EXAMINATION: Patient is a 44 -year old , Self- Employed, Domiciled, male, who [facility] after an aborted suicidal attempt by carbon monoxide poisoning. He appears his stated age. His hygiene and grooming is well-kempt, calm and cooperative in the interview. His eye contact is fleeting. Speech: Is spontaneous, slow and soft Language skills are expansive Thought processes including: liniear and goal oriented and ruminative, he c atastrophizes his past and his future Thought content: Depression, paranoid about his work and his ability to fix things, demonstrates mild dichotomous reasoning Abstract reasoning, and computation: good. 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 Description of abnormal or psychotic thoughts: None Judgment: Fair Insight: Fair Orientation: alert and oriented Recent and remote memory: intact Attention span and concentration: good Language: expansive Fund of knowledge: above average Mood: Depressed and Anxious Affect: Flat, worried, nervous DIAGNOSES: 1. Major Depressive Disorder, Recurrent, Moderate 2. Generalized Anxiety Disorder 3. Autism Spectrum Disorder per father's reports ASSESSMENT: Patient remains severely anxious, reports his depression is 8/10 and his anxiety 9/10. 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 He reports fearing being financially unstable for a long time. He worries about his father's unaware of his reasons for being admitted, he asked this provider to call his father and speak with him but does not want his father to know about his suicide attempt. He states he wants to be relieved of his anxiety but does feel that is a reachable goal. Patient continues to have fleeting/vauge suicidal thoughts. Spoke with patient's father. Father wants Autism Spectrum to be added to his diagnosis. 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 father reports a history of patient of withholding or underreporting his symptoms/ MANAGEMENT PLAN: Patient is not stable for discharge, continue all medications as ordered. TIME SPENT: 30 minutes. Vital Signs Vital Signs Date Time Temp Pulse Resp B/P (MAP) Pulse Ox O2 Delivery O2 Flow Rate FiO2 01/11/20 17:46 97.5 94 16 146/90 (108) 01/11/20 06:14 99 Room Air Current Medications Current Medications Medications (Trade) Dose Ordered Sig/Eva Route PRN Reason Start Time Stop Time Status Last Admin Dose Admin Acetaminophen (Tylenol Tab) 650 mg Q6HP PRN PO HEADACHE or DISCOMFORT 01/07/20 18:00 Al Hydrox/Mg Hydrox/Simethicone (Mylanta) 30 ml Q4HP PRN PO HEARTBURN/INDIGESTION 01/07/20 18:00 Aripiprazole (AbiLIFY) 10 mg DAILY PO 01/08/20 09:00 01/11/20 08:37 Buspirone HCl (Buspar) 5 mg BID PO 01/08/20 21:00 01/11/20 10:40 DC 01/11/20 08:37 Buspirone HCl (Buspar) 10 mg BID PO 01/11/20 21:00 Home Med (Med Rec Complete!) ASDIRECTED XX 01/07/20 15:15 01/07/20 15:02 DC Lorazepam (Ativan) 1 mg BIDP PRN PO ANXIETY/AGITATION 01/07/20 18:00 Magnesium Hydroxide (Milk Of Magnesia) 30 ml DAILYPRN PRN PO CONSTIPATION 01/07/20 18:00 Trazodone HCl (Desyrel) 50 mg QHSP PRN PO INSOMNIA 01/07/20 18:00 01/08/20 14:25 DC Trazodone HCl (Desyrel) 100 mg QHS PO 01/08/20 21:00 01/10/20 21:26 Venlafaxine HCl (Effexor Xr) 150 mg DAILY PO 01/08/20 09:00 01/08/20 14:25 DC 01/08/20 10:03 Venlafaxine HCl (Effexor Xr) 225 mg DAILY PO 01/09/20 09:00 01/11/20 08:38 Allergies Coded Allergies: No Known Allergies (Unverified , 01/07/20) ZAK RIVERS NP Jan 11, 2020 18:30
[2020-01-11] MEDS: traZODone 100 MG TAB PO SCH (20:54)
[2020-01-11] MEDS: busPIRone 10 MG TAB PO SCH (20:54)
[2020-01-12 06:27] VITALS: BP 146/79
[2020-01-12] MEDS: busPIRone 10 MG TAB PO SCH ×2 (08:53→20:09)
[2020-01-12] MEDS: ARIPiprazole 10 MG TAB PO SCH (08:53)
[2020-01-12] MEDS: VENLAFAXINE **XR** 75MG CAPSULE PO SCH (08:54)
--- NOTE | 2020-01-12 16:13 | MHIPNPDOC ---
[facility] Progress Note Progress Note DATE OF SERVICE: 01/12/20 HISTORY: Patient is a 44 year old, , Self-Employed, Domiciled, Male who was brought to [facility] by EMS after he reported to 911 that he aborted his suicide attempt by carbon monoxide poisoning. 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 He believes that these mistakes are irreversible and that it would be financially disastrous for his family. Patient had waited for his to go to work and his daughter to get on the bus. He then put the car in the garage and had it running for an hour. After one hour, he aborted the attempt and dialed 911. . VITAL SIGNS: See below. NEW TEST RESULTS: . CURRENT MEDICATIONS: See below. MENTAL STATUS EXAMINATION: Patient is a 44 -year old , Self-Employed, Domiciled, male, who is admitted to [facility] after an aborted suicidal attempt by carbon monoxide poisoning. He appears his stated age. His hygiene and grooming is well-kempt, calm and cooperative in the interview. His eye contact is fleeting. Speech: Is spontaneous, slow and soft Language skills are expansive Thought processes including: linear and goal oriented and ruminative, Thought content: Depression, paranoid about his work and his ability to fix things, Abstract reasoning, and computation: good. Description of associations: continued paranoid thoughts about the mistakes he has made Description of abnormal or psychotic thoughts: Paranoid about his work, this is decreasing Judgment: Fair Insight: Fair Orientation: alert and oriented Recent and remote memory: intact Attention span and concentration: good Language: expansive Fund of knowledge: above average Mood: Depressed and Anxious Affect: Flat, worried, nervous DIAGNOSES: 1. Major Depressive Disorder, Recurrent, Moderate 2. Generalized Anxiety Disorder 3. Autism Spectrum Disorder per father's reports ASSESSMENT: Patient remains severely anxious, reports his depression is 6/10 and his anxiety 6/10. Patient states that he wants to make changes at work. He thinks that he needs to consider applying for disability. He reports having relief that his Uncle is helping him with calling the courts to explain his need to extension due to hospitalization. He wants to know when he will be discharged because his wants him to be home to help her, but he reports continued depression and anxiety. He reports that his anxiety is the reason that he has fleet suicidal ideation. 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 MANAGEMENT PLAN: Patient is not stable for discharge, continue all medications as ordered. TIME SPENT: 30 minutes. Vital Signs Vital Signs Date Time Temp Pulse Resp B/P (MAP) Pulse Ox O2 Delivery O2 Flow Rate FiO2 01/12/20 06:27 97.1 73 15 146/79 (101) 99 Room Air Current Medications Current Medications Medications (Trade) Dose Ordered Sig/Eva Route PRN Reason Start Time Stop Time Status Last Admin Dose Admin Acetaminophen (Tylenol Tab) 650 mg Q6HP PRN PO HEADACHE or DISCOMFORT 01/07/20 18:00 Al Hydrox/Mg Hydrox/Simethicone (Mylanta) 30 ml Q4HP PRN PO HEARTBURN/INDIGESTION 01/07/20 18:00 Aripiprazole (AbiLIFY) 10 mg DAILY PO 01/08/20 09:00 01/12/20 08:53 Buspirone HCl (Buspar) 5 mg BID PO 01/08/20 21:00 01/11/20 10:40 DC 01/11/20 08:37 Buspirone HCl (Buspar) 10 mg BID PO 01/11/20 21:00 01/12/20 08:53 Home Med (Med Rec Complete!) ASDIRECTED XX 01/07/20 15:15 01/07/20 15:02 DC Lorazepam (Ativan) 1 mg BIDP PRN PO ANXIETY/AGITATION 01/07/20 18:00 Magnesium Hydroxide (Milk Of Magnesia) 30 ml DAILYPRN PRN PO CONSTIPATION 01/07/20 18:00 Trazodone HCl (Desyrel) 50 mg QHSP PRN PO INSOMNIA 01/07/20 18:00 01/08/20 14:25 DC Trazodone HCl (Desyrel) 100 mg QHS PO 01/08/20 21:00 01/11/20 20:54 Venlafaxine HCl (Effexor Xr) 150 mg DAILY PO 01/08/20 09:00 01/08/20 14:25 DC 01/08/20 10:03 Venlafaxine HCl (Effexor Xr) 225 mg DAILY PO 01/09/20 09:00 01/12/20 08:54 Allergies Coded Allergies: No Known Allergies (Unverified , 01/07/20) ZAK RIVERS NP Jan 12, 2020 16:13
[2020-01-12 18:10] VITALS: BP 148/86
[2020-01-12] MEDS: traZODone 100 MG TAB PO SCH (20:09)
[2020-01-13 06:53] VITALS: BP 115/70
[2020-01-13] MEDS: VENLAFAXINE **XR** 75MG CAPSULE PO SCH (08:51)
[2020-01-13] MEDS: ARIPiprazole 10 MG TAB PO SCH (08:52)
[2020-01-13] MEDS: busPIRone 10 MG TAB PO SCH ×2 (08:52→20:34)
--- NOTE | 2020-01-13 13:35 | MHIPNPDOC ---
[facility] Progress Note Progress Note DATE OF SERVICE: 01/13/20 ISTORY: Patient is a 44 year old, , Self-Employed, Domiciled, Male who was brought to [facility] by EMS after he reported to 911 that he aborted his suicide attempt by carbon monoxide poisoning. 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 He put the car in the garage and had it running for an hour. After one hour, he aborted the attempt and dialed 911. . VITAL SIGNS: See below. NEW TEST RESULTS: . CURRENT MEDICATIONS: See below. MENTAL STATUS EXAMINATION: Patient is a 44 -year old , Self-Employed, Domiciled, male, who is admitted to [facility] after an aborted suicidal attempt by carbon monoxide poisoning. He appears his stated age. His hygiene and grooming is well-kempt, calm and cooperative in the interview. His eye contact is fleeting. Speech: Spontaneous, fluid, normal rate tone and volume Language skills are expansive Thought processes including: linear and goal oriented and less ruminative, Thought content: Reports decreasing depression and anxiety Abstract reasoning, and computation: good. Description of associations: less paranoid thoughts Description of abnormal or psychotic thoughts: less paranoid Judgment: Fair to good Insight: Fair to good Orientation: alert and oriented Recent and remote memory: intact Attention span and concentration: good Language: expansive Fund of knowledge: above average Mood: less depressed and Anxious Affect: reactive DIAGNOSES: 1. Major Depressive Disorder, Recurrent, Moderate 2. Generalized Anxiety Disorder 3. Autism Spectrum Disorder per father's reports ASSESSMENT: Patient is reporting less anxiety and depression, rating anxiety 5/10 and depression 5/10. His Uncle was able to get his family court cases dispersed. 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 He is reporting that his anxiety has decreased enough that he is requesting to be discharged tomorrow. Patient's mood and affect is improved. MANAGEMENT PLAN: Patient is stable for discharge, we will continue all medications as ordered. Patient is planning to have his pick him up in the afternoon. TIME SPENT: 30 minutes. Vital Signs Vital Signs Date Time Temp Pulse Resp B/P (MAP) Pulse Ox O2 Delivery O2 Flow Rate FiO2 01/13/20 06:53 98.1 76 14 115/70 (85) 99 Room Air Current Medications Current Medications Medications (Trade) Dose Ordered Sig/Eva Route PRN Reason Start Time Stop Time Status Last Admin Dose Admin Acetaminophen (Tylenol Tab) 650 mg Q6HP PRN PO HEADACHE or DISCOMFORT 01/07/20 18:00 Al Hydrox/Mg Hydrox/Simethicone (Mylanta) 30 ml Q4HP PRN PO HEARTBURN/INDIGESTION 01/07/20 18:00 Aripiprazole (AbiLIFY) 10 mg DAILY PO 01/08/20 09:00 01/13/20 08:52 Buspirone HCl (Buspar) 5 mg BID PO 01/08/20 21:00 01/11/20 10:40 DC 01/11/20 08:37 Buspirone HCl (Buspar) 10 mg BID PO 01/11/20 21:00 01/13/20 08:52 Home Med (Med Rec Complete!) ASDIRECTED XX 01/07/20 15:15 01/07/20 15:02 DC Lorazepam (Ativan) 1 mg BIDP PRN PO ANXIETY/AGITATION 01/07/20 18:00 Magnesium Hydroxide (Milk Of Magnesia) 30 ml DAILYPRN PRN PO CONSTIPATION 01/07/20 18:00 Trazodone HCl (Desyrel) 50 mg QHSP PRN PO INSOMNIA 01/07/20 18:00 01/08/20 14:25 DC Trazodone HCl (Desyrel) 100 mg QHS PO 01/08/20 21:00 01/12/20 20:09 Venlafaxine HCl (Effexor Xr) 150 mg DAILY PO 01/08/20 09:00 01/08/20 14:25 DC 01/08/20 10:03 Venlafaxine HCl (Effexor Xr) 225 mg DAILY PO 01/09/20 09:00 01/13/20 08:51 Allergies Coded Allergies: No Known Allergies (Unverified , 01/07/20) ZAK RIVERS NP Jan 13, 2020 13:35
[2020-01-13 15:30] VITALS: BP 148/87
[2020-01-13] MEDS: traZODone 100 MG TAB PO SCH (20:34)
[2020-01-14 06:29] VITALS: BP 132/98
[2020-01-14] MEDS: ARIPiprazole 10 MG TAB PO SCH (08:49)
[2020-01-14] MEDS: VENLAFAXINE **XR** 75MG CAPSULE PO SCH (08:49)
[2020-01-14] MEDS: busPIRone 10 MG TAB PO SCH (08:49)
[2020-01-14] MEDS ORDERED: ARIP1TAB PO (09:50)
[2020-01-14] MEDS ORDERED: BUSP10TA PO (09:50)
[2020-01-14] MEDS ORDERED: VENL150C43 PO ×2 (09:50→09:53)
--- NOTE | 2020-01-14 11:27 | MHDSPDOC ---
[facility] Discharge Summary Discharge Summary DATE OF ADMISSION: Jan 07, 2020 at 17:47 DATE OF DISCHARGE: January 14, 2020 11:19 DISCHARGE DIAGNOSES: 1. Major Depressive Disorder, Recurrent, Moderate 2. Generalized Anxiety Disorder 3. Autism Spectrum Disorder per father's reports REASON FOR ADMISSION: Patient is a 44 year old, , Self-Employed, Domiciled, Male who was brought to [facility] by EMS after he reported to 911 that he aborted his suicide attempt by carbon monoxide poisoning. 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 He believes that these mistakes are irreversible and that it would be financially disastrous for his family. On this occasion, Patient had waited for his to go to work and his daughter to get on the bus. He then put the car in the garage and had it running for an hour. After one hour, he aborted the attempt and dialed 911. CONSULTANTS INVOLVED: Please see Medical H + P by Dr. Pandya TREATMENT AND PROGRESS ON THE UNIT : Patient was admitted to [facility] and was afforded the following treatment modalities: 1) individual therapy 2) group therapy 3) medication management, 4) milieu therapy and 5) safe environment HOSPITAL COURSE: Patient was restarted on his home medications, Effexor was increased to 225 mg and Buspar 10 mg was added to his regimen. He reported that he had good effects with this. Patient had stated that his cases in the family court was dispersed after his Uncle called the courts to report patient's need. After this occurred, patient reported less anxiety. He states that he can handle the remaining cases in his roster. He stated that in his individual therapy that he had stopped ECT in September. Patient had ECT from 07/2018 to 09/2019 and his father felt that his decline is a direct result of not continuing ECT. Patient also feels that he may need to see if he qualifies for Disability but he states in the interview today that he would prefer to work. He had reported that his depressed and anxiety had decreased enough that he was able to be focused. He had reported no suicidal ideation, planning or intent. DISCHARGE ASSESSMENT: On this occasion, patient's mood and affect was visibly improved. He was less nervous and worried. He was observed with bright mood and affect. MENTAL STATUS EXAMINATION ON DISCHARGE: Patient is a 44 -year old , Self-Employed, Domiciled, male, who is admitted to [facility] after an aborted suicidal attempt by carbon monoxide poisoning. He appears his stated age. His hygiene and grooming is well-kempt, calm and cooperative in the interview. His eye contact is good. No psychomotor agitation or retardation. Speech: Spontaneous, fluid, normal rate tone and volume Language skills are expansive Thought processes including: linear and goal oriented Thought content: Reports continued decreasing depression and anxiety Abstract reasoning, and computation: good. Description of associations: none noted Description of abnormal or psychotic thoughts: none Judgment: good Insight: good Orientation: alert and oriented Recent and remote memory: intact Attention span and concentration: good Language: expansive Fund of knowledge: above average Mood: Decreased Depression and Anxiety Affect: reactive MEDICATIONS ON DISCHARGE: Effexor 225 mg daily Abilify 10 mg daily Buspar 10 mg twice daily PLAN/FOLLOWUP ARRANGEMENTS: Patient is seen at [facility] and sees Dr. Barriga. Patient would like to investigate Spravato as a treatment option and states that he will discuss this with Dr. Barriga at this next appointment. The amount of time spent in the coordination of care for this patient was approximately 30 minutes. Vital Signs/I&Os Vital Signs Date Time Temp Pulse Resp B/P (MAP) Pulse Ox O2 Delivery O2 Flow Rate FiO2 01/14/20 06:29 96.3 96 18 132/98 (109) Room Air 01/13/20 06:53 99 Medications Scheduled Aripiprazole (Aripiprazole) 10 Mg Tablet, 10 MG PO DAILY for Adjunct for depression, #7 Buspirone HCl (Buspirone HCl) 10 Mg Tablet, 10 MG PO BID for Anxiety, #14 Venlafaxine HCl (Venlafaxine HCl ER) 150 Mg Cap.er.24h, 225 MG PO DAILY for Depression, #21 Take (3) 75 mg tablets daily Allergies Coded Allergies: No Known Allergies (Unverified , 01/07/20) ZAK RIVERS NP Jan 14, 2020 11:27
== END 2020-01-14 14:23 | disposition home or self-care (01) | DRG 885 ==
LOC: M ED 09:55 → M ED INP 17:47 → M PSY 22:16
PROVIDERS: ADMIT Psychiatry & Neurology Psychiatry; ATTEND Psychiatry & Neurology Psychiatry
DX: F33.1 Major depressive disorder, recurrent, moderate (principal); F41.1 Generalized anxiety disorder; Z81.8 Family history of other mental and behavioral disorders; Z81.1 Family history of alcohol abuse and dependence; T58.12XA Toxic effect of carbon monoxide from utility gas, intentional self-harm, initial encounter; Z79.899 Other long term (current) drug therapy; F84.0 Autistic disorder

== ENCOUNTER → 2020-10-12 | Outpatient (CLI) | payer OTHER ==
[~2020-10-12] MED LIST changes: +ARIP10TA32 PO; +BUSP10TA PO; +GABA-282 PO; -GABA-843 PO; +QUET50TA3 PO; -QUET5TAB PO
--- NOTE | 2020-10-12 15:47 | REP ---
INDICATION: COUGH. COMPARISON: No comparison chest x-ray. TECHNIQUE: Three views... FINDINGS: The lungs are well inflated and free of infiltrate. The pleural angles are sharp. The heart size is normal. Pulmonary vasculature is not increased. No significant bony abnormality is seen. IMPRESSION: Negative chest x-ray. <Electronically signed by Carlo Reece > 10/12/20 2124
== END ==
LOC: M WUC 14:42
PROVIDERS: ATTEND Physician Assistant
DX: R05 Cough (principal)

== ENCOUNTER → 2020-11-25 | Outpatient (CLI) | payer OTHER ==
[2020-11-25 10:25] LABS: HEMOGLOBIN A1c 5.1 %
[2020-11-25 10:43] LABS: ALBUMIN 4.1 GM/DL (3.2-5.2); ALT/SGPT 62 U/L (12-78); BILIRUBIN,TOTAL 0.4 MG/DL (0.2-1.0); BLOOD UREA NITROGEN 12 MG/DL (7-18); CALCIUM LEVEL 8.8 MG/DL (8.5-10.1); CARBON DIOXIDE LEVEL 32 MEQ/L (21-32); CHLORIDE LEVEL 103 MEQ/L (98-107); CHOLESTEROL LEVEL 216 MG/DL (<200); CHOLESTEROL RISK RATIO 4.595 (<5); CREATININE FOR GFR 0.83 MG/DL (0.70-1.30); FREE T4 0.82 NG/DL (0.76-1.46); GLOMERULAR FILTRATION RATE > 60.0 (>60); GLUCOSE, FASTING 93 MG/DL (70-100); HDL CHOLESTEROL 47 MG/DL (>40); LDL CHOLESTEROL 131 MG/DL (<100); NON-HDL-C 169 MG/DL; POTASSIUM SERUM 4.5 MEQ/L (3.5-5.1); SODIUM LEVEL 138 MEQ/L (136-145); TOTAL PROTEIN 7.1 GM/DL (6.4-8.2); TRIGLYCERIDES LEVEL 188 MG/DL (<150)
== END ==
LOC: M LAB 08:26
PROVIDERS: ATTEND Nurse Practitioner Family
DX: E78.2 Mixed hyperlipidemia (principal); E55.9 Vitamin D deficiency, unspecified

== ENCOUNTER → 2021-05-17 | Outpatient (CLI) | payer OTHER ==
[~2021-05-17] MED LIST changes: -QUET50TA3 PO; +QUET50TA4 PO
[2021-05-17 10:12] LABS: ALBUMIN 3.9 GM/DL (3.2-5.2); ALT/SGPT 74 U/L (12-78); BILIRUBIN,TOTAL 0.5 MG/DL (0.2-1.0); BLOOD UREA NITROGEN 10 MG/DL (7-18); CARBON DIOXIDE LEVEL 31 MEQ/L (21-32); CHLORIDE LEVEL 104 MEQ/L (98-107); CHOLESTEROL LEVEL 190 MG/DL (<200); CHOLESTEROL RISK RATIO 4.523 (<5); GLOMERULAR FILTRATION RATE > 60.0 (>60); GLUCOSE, FASTING 102 MG/DL (70-100); HDL CHOLESTEROL 42 MG/DL (>40); LDL CHOLESTEROL 80 MG/DL (<100); NON-HDL-C 148 MG/DL; POTASSIUM SERUM 4.5 MEQ/L (3.5-5.1); SODIUM LEVEL 138 MEQ/L (136-145); TOTAL PROTEIN 6.8 GM/DL (6.4-8.2); TRIGLYCERIDES LEVEL 338 MG/DL (<150)
== END ==
LOC: M LAB 08:41
PROVIDERS: ATTEND Nurse Practitioner Family
DX: E78.2 Mixed hyperlipidemia (principal); I10 Essential (primary) hypertension

== ENCOUNTER → 2022-10-05 | Outpatient (CLI) | payer OTHER ==
[~2022-10-05] MED LIST changes: +DIPH-435 PO; -DIPH25CA32 PO; +FEXO-117 PO; -FEXO180T58 PO
[2022-10-05 09:32] LABS: BASO % 0.6 % (0.0-1.0); EOS # 0.1 10^3/uL (0.0-0.5); EOS % 1.5 % (0.0-3.0); HEMATOCRIT 40.6 % (42.0-52.0); HEMOGLOBIN 14.2 g/dl (13.5-17.5); LYMPH # 1.7 10^3/uL (1.5-5.0); LYMPH % 34.4 % (24.0-44.0); MEAN CORPUSCULAR HEMOGLOBIN 31.1 pg (27.0-33.0); MEAN CORPUSCULAR VOLUME 88.8 fl (80.0-96.0); MONO # 0.4 10^3/uL (0.0-0.8); MONO % 8.7 % (2.0-8.0); NEUTROPHILS # 2.6 10^3/uL (1.5-8.5); NEUTROPHILS % 54.4 % (36.0-66.0); PLATELET COUNT, AUTOMATED 259 10^3/uL (150-450); RED BLOOD COUNT 4.57 10^6/uL (4.30-6.10); WHITE BLOOD COUNT 4.8 10^3/uL (4.0-10.0)
[2022-10-05 10:01] LABS: ALBUMIN 4.2 G/DL (3.2-5.2); ALKALINE PHOSPHATASE 86 U/L (46-116); ALT/SGPT 94 U/L (7.0-40); AST/SGOT 34 U/L (<34); BILIRUBIN,TOTAL 0.8 MG/DL (0.3-1.2); BLOOD UREA NITROGEN 12 MG/DL (9-23); CARBON DIOXIDE LEVEL 31 MMOL/L (20-31); CHLORIDE LEVEL 104 MMOL/L (98-107); CHOLESTEROL LEVEL 182 MG/DL (<200); CHOLESTEROL RISK RATIO 4.66 (<5); CREATININE FOR GFR 0.81 MG/DL (0.70-1.30); GLOMERULAR FILTRATION RATE > 60.0 (>60); GLUCOSE, FASTING 99 MG/DL (60-100); LDL CHOLESTEROL 80.4 MG/DL (<100); POTASSIUM SERUM 4.2 MMOL/L (3.5-5.1); SODIUM LEVEL 137 MMOL/L (136-145); TOTAL PROTEIN 6.7 G/DL (5.7-8.2); TRIGLYCERIDES LEVEL 313 MG/DL (<150)
[2022-10-05 10:02] LABS: FREE T4 0.81 NG/DL (0.89-1.76); THYROID STIMULATING HORMONE 2.813 uIU/ML (0.55-4.78); TOTAL 25(OH) VITAMIN D 22.1 NG/ML (20.0-100.0)
== END ==
LOC: M LAB 08:47
PROVIDERS: ATTEND Nurse Practitioner Family
DX: I10 Essential (primary) hypertension (principal); E78.2 Mixed hyperlipidemia; E55.9 Vitamin D deficiency, unspecified

== ENCOUNTER → 2023-06-03 | Outpatient (CLI) | payer OTHER ==
[2023-06-03 13:46] LABS: BASO % 0.6 % (0.0-1.0); EOS # 0.1 10^3/uL (0.0-0.5); EOS % 0.8 % (0.0-3.0); HEMATOCRIT 41.4 % (42.0-52.0); HEMOGLOBIN 14.5 g/dl (13.5-17.5); MEAN CORPUSCULAR HEMOGLOBIN 30.9 pg (27.0-33.0); MEAN CORPUSCULAR VOLUME 88.1 fl (80.0-96.0); MONO # 0.3 10^3/uL (0.0-0.8); NEUTROPHILS # 4.1 10^3/uL (1.5-8.5); NEUTROPHILS % 63.1 % (36.0-66.0); PLATELET COUNT, AUTOMATED 274 10^3/uL (150-450); WHITE BLOOD COUNT 6.6 10^3/uL (4.0-10.0)
[2023-06-03 14:19] LABS: ALBUMIN 4.1 G/DL (3.2-5.2); ALKALINE PHOSPHATASE 85 U/L (46-116); ALT/SGPT 101 U/L (7.0-40); AST/SGOT 34 U/L (<34); BILIRUBIN,TOTAL 0.6 MG/DL (0.3-1.2); BLOOD UREA NITROGEN 9 MG/DL (9-23); CALCIUM LEVEL 9.1 MG/DL (8.5-10.1); CARBON DIOXIDE LEVEL 29 MMOL/L (20-31); CHLORIDE LEVEL 104 MMOL/L (98-107); CREATININE FOR GFR 0.82 MG/DL (0.70-1.30); GLOMERULAR FILTRATION RATE > 60.0 (>60); GLUCOSE, FASTING 150 MG/DL (60-100); POTASSIUM SERUM 3.7 MMOL/L (3.5-5.1); SODIUM LEVEL 137 MMOL/L (136-145); TOTAL PROTEIN 6.7 G/DL (5.7-8.2)
== END ==
LOC: M LAB 13:06
PROVIDERS: ATTEND Nurse Practitioner Family
DX: I10 Essential (primary) hypertension (principal)

== ENCOUNTER 2023-08-05 17:21 | Emergency (ER) | payer OTHER ==
[~2023-08-05] VITALS: Ht 182.9 cm; Wt 113.4 kg
[~2023-08-05 17:21] MED LIST changes: -KLON0.5T PO; +KLON0.5T8 PO
[2023-08-05 17:22] VITALS: BP 114/74; TEMP 96.3; O2SAT 98
[2023-08-05] MEDS ORDERED: TELM1TAB33 (17:34)
[2023-08-05 18:32] LABS: HEMATOCRIT 45.6 % (42.0-52.0); HEMOGLOBIN 16.1 g/dl (13.5-17.5); MEAN CORPUSCULAR HEMOGLOBIN 30.9 pg (27.0-33.0); MEAN CORPUSCULAR HGB CONC 35.3 g/dl (32.0-36.5); MEAN CORPUSCULAR VOLUME 87.5 fl (80.0-96.0); PLATELET COUNT, AUTOMATED 259 10^3/uL (150-450); RED BLOOD COUNT 5.21 10^6/uL (4.30-6.10); WHITE BLOOD COUNT 10.1 10^3/uL (4.0-10.0)
[2023-08-05 18:48] LABS: BLOOD UREA NITROGEN 18 MG/DL (9-23); CALCIUM LEVEL 8.6 MG/DL (8.5-10.1); CARBON DIOXIDE LEVEL 26 MMOL/L (20-31); CHLORIDE LEVEL 99 MMOL/L (98-107); GLOMERULAR FILTRATION RATE > 60.0 (>60); GLUCOSE, FASTING 120 MG/DL (60-100); POTASSIUM SERUM 4.3 MMOL/L (3.5-5.1); SODIUM LEVEL 133 MMOL/L (136-145)
== END 2023-08-05 22:02 | disposition left against medical advice (07) ==
LOC: M ED 17:21
DX: Z53.21 Procedure and treatment not carried out due to patient leaving prior to being seen by health care provider (principal)

== ENCOUNTER → 2023-12-02 | Outpatient (CLI) | payer OTHER ==
[~2023-12-02] MED LIST changes: +TELM1TAB33
[2023-12-02 09:39] LABS: BASO # 0.1 10^3/uL (0.0-0.2); BASO % 0.8 % (0.0-1.0); EOS # 0.1 10^3/uL (0.0-0.5); EOS % 1.6 % (0.0-3.0); HEMATOCRIT 41.5 % (42.0-52.0); HEMOGLOBIN 14.6 g/dl (13.5-17.5); LYMPH # 2.1 10^3/uL (1.5-5.0); LYMPH % 34.1 % (24.0-44.0); MEAN CORPUSCULAR HEMOGLOBIN 30.5 pg (27.0-33.0); MEAN CORPUSCULAR HGB CONC 35.2 g/dl (32.0-36.5); MEAN CORPUSCULAR VOLUME 86.8 fl (80.0-96.0); MONO # 0.5 10^3/uL (0.0-0.8); MONO % 7.9 % (2.0-8.0); NEUTROPHILS # 3.4 10^3/uL (1.5-8.5); NEUTROPHILS % 55.3 % (36.0-66.0); PLATELET COUNT, AUTOMATED 283 10^3/uL (150-450); RED BLOOD COUNT 4.78 10^6/uL (4.30-6.10); WHITE BLOOD COUNT 6.1 10^3/uL (4.0-10.0)
[2023-12-02 09:54] LABS: HEMOGLOBIN A1c 5.2 % (4.0-6.0)
[2023-12-02 10:05] LABS: IRON (FE) 98 UG/DL (65-175); PERCENT SATURATION 31.1 % (19.7-50.0); TOTAL IRON BINDING CAPACITY 315 UG/DL (250-425)
[2023-12-02 10:06] LABS: ALBUMIN 4.3 G/DL (3.2-5.2); ALKALINE PHOSPHATASE 87 U/L (46-116); ALT/SGPT 63 U/L (7.0-40); AST/SGOT 21 U/L (<34); BILIRUBIN,TOTAL 0.8 MG/DL (0.3-1.2); BLOOD UREA NITROGEN 10 MG/DL (9-23); CALCIUM LEVEL 9.3 MG/DL (8.5-10.1); CARBON DIOXIDE LEVEL 32 MMOL/L (20-31); CHLORIDE LEVEL 104 MMOL/L (98-107); CHOLESTEROL LEVEL 193 MG/DL (<200); CHOLESTEROL RISK RATIO 4.67 (<5); CREATININE FOR GFR 0.87 MG/DL (0.70-1.30); GLOMERULAR FILTRATION RATE > 60.0 (>60); GLUCOSE, FASTING 92 MG/DL (60-100); HDL CHOLESTEROL 41.3 MG/DL (>40); LDL CHOLESTEROL 106.1 MG/DL (<100); NON-HDL-C 151.7 MG/DL; POTASSIUM SERUM 4.3 MMOL/L (3.5-5.1); SODIUM LEVEL 139 MMOL/L (136-145); TRIGLYCERIDES LEVEL 228 MG/DL (<150)
== END ==
LOC: M LAB 08:13
PROVIDERS: ATTEND Nurse Practitioner Family
DX: E78.2 Mixed hyperlipidemia (principal); I10 Essential (primary) hypertension; E55.9 Vitamin D deficiency, unspecified; R73.01 Impaired fasting glucose; R79.89 Other specified abnormal findings of blood chemistry

== ENCOUNTER → 2024-08-08 | Outpatient (CLI) | payer OTHER ==
[~2024-08-08] MED LIST changes: -ARIP10TA32 PO; +ARIP10TA63 PO; -FEXO-117 PO; +FEXO-193 PO; +GABA-1172 PO; -GABA-282 PO
[2024-08-08 09:37] LABS: BASO # 0.1 10^3/uL (0.0-0.2); BASO % 0.8 % (0.0-1.0); EOS # 0.2 10^3/uL (0.0-0.5); LYMPH # 1.9 10^3/uL (1.5-5.0); LYMPH % 31.1 % (24.0-44.0); MEAN CORPUSCULAR HEMOGLOBIN 30.5 pg (27.0-33.0); MEAN CORPUSCULAR HGB CONC 34.9 g/dl (32.0-36.5); MEAN CORPUSCULAR VOLUME 87.4 fl (80.0-96.0); MONO # 0.6 10^3/uL (0.0-0.8); MONO % 9.5 % (2.0-8.0); NEUTROPHILS # 3.2 10^3/uL (1.5-8.5); NEUTROPHILS % 54.1 % (36.0-66.0); PLATELET COUNT, AUTOMATED 274 10^3/uL (150-450); RED BLOOD COUNT 4.92 10^6/uL (4.30-6.10)
[2024-08-08 09:55] LABS: HEMOGLOBIN A1c 4.8 % (4.0-6.0)
[2024-08-08 10:04] LABS: ALKALINE PHOSPHATASE 75 U/L (40-129); ALT/SGPT 49 U/L (7.0-40); AST/SGOT 15 U/L (<34); BILIRUBIN,TOTAL 0.7 MG/DL (0.3-1.2); BLOOD UREA NITROGEN 10 MG/DL (9-23); CALCIUM LEVEL 9.2 MG/DL (8.5-10.1); CARBON DIOXIDE LEVEL 33 MMOL/L (20-31); CHLORIDE LEVEL 102 MMOL/L (98-107); CHOLESTEROL LEVEL 178 MG/DL (<200); CHOLESTEROL RISK RATIO 4.63 (<5); CREATININE FOR GFR 0.78 MG/DL (0.70-1.30); GLOMERULAR FILTRATION RATE > 90.0 (>60); GLUCOSE, FASTING 94 MG/DL (60-100); HDL CHOLESTEROL 38.4 MG/DL (>40); LDL CHOLESTEROL 70.6 MG/DL (<100); NON-HDL-C 139.6 MG/DL; POTASSIUM SERUM 4.6 MMOL/L (3.5-5.1); SODIUM LEVEL 139 MMOL/L (136-145); TOTAL PROTEIN 6.8 G/DL (5.7-8.2); TRIGLYCERIDES LEVEL 345 MG/DL (<150)
== END ==
LOC: M LAB 08:26
PROVIDERS: ATTEND Nurse Practitioner Family
DX: I10 Essential (primary) hypertension (principal); E78.2 Mixed hyperlipidemia; E55.9 Vitamin D deficiency, unspecified; R73.01 Impaired fasting glucose

== ENCOUNTER 2024-12-25 09:31 | Day surgery (SDC) | payer OTHER ==
[~2024-12-25] VITALS: Ht 182.9 cm; Wt 111.0 kg
[~2024-12-25 09:31] MED LIST changes: +TELM1TAB33 PO
[2024-12-25 11:16] VITALS: BP 132/77; TEMP 98.2; O2SAT 99
== END 2024-12-25 11:25 | disposition home or self-care (01) ==
LOC: M OPP 09:31
PROVIDERS: ATTEND Surgery
DX: Z12.11 Encounter for screening for malignant neoplasm of colon (principal); K57.30 Diverticulosis of large intestine without perforation or abscess without bleeding; Z91.048 Other nonmedicinal substance allergy status; Z79.899 Other long term (current) drug therapy

== ENCOUNTER → 2025-02-23 | Outpatient (CLI) | payer OTHER ==
[2025-02-23 08:37] LABS: BASO # 0.0 10^3/uL (0.0-0.2); BASO % 0.4 % (0.0-1.0); EOS # 0.1 10^3/uL (0.0-0.5); EOS % 2.8 % (0.0-3.0); LYMPH # 1.5 10^3/uL (1.5-5.0); LYMPH % 30.5 % (24.0-44.0); MONO # 0.5 10^3/uL (0.0-0.8); MONO % 9.9 % (2.0-8.0); NEUTROPHILS # 2.8 10^3/uL (1.5-8.5); NEUTROPHILS % 56.2 % (36.0-66.0); PLATELET COUNT, AUTOMATED 298 10^3/uL (150-450)
[2025-02-23 09:09] LABS: ESTIMATED AVERAGE GLUCOSE 103.0 MG/DL (60-110)
[2025-02-23 09:11] LABS: ALT/SGPT 32 U/L (7.0-40); AST/SGOT 16 U/L (<34); CALCIUM LEVEL 9.5 MG/DL (8.5-10.1); CARBON DIOXIDE LEVEL 30 MMOL/L (20-31); CHLORIDE LEVEL 104 MMOL/L (98-107); CHOLESTEROL LEVEL 166 MG/DL (<200); CHOLESTEROL RISK RATIO 4.83 (<5); CREATININE FOR GFR 1.00 MG/DL (0.70-1.30); GLOMERULAR FILTRATION RATE > 90.0 (>60); LDL CHOLESTEROL 89.5 MG/DL (<100); NON-HDL-C 131.7 MG/DL; POTASSIUM SERUM 4.8 MMOL/L (3.5-5.1); SODIUM LEVEL 141 MMOL/L (136-145); TRIGLYCERIDES LEVEL 211 MG/DL (<150)
== END ==
LOC: M LAB 08:01
PROVIDERS: ATTEND Nurse Practitioner Family
DX: R73.01 Impaired fasting glucose (principal); I10 Essential (primary) hypertension; E78.2 Mixed hyperlipidemia